=== PATIENT | male | born 1965 | race Caucasian/White ===

== ENCOUNTER 2017-02-24 19:12 | Inpatient (IN) | payer BC, OTHER ==
[~2017-02-24] VITALS: Ht 175.3 cm; Wt 111.7 kg
[2017-02-24 19:37] LABS: BASOPHILS 0.5 % (0-2); EOSINOPHILS 4.8 % (0-7); HEMATOCRIT 44.1 % (42.0-54.0); IMMATURE GRANULOCYTES 0.2 % (0-5); LYMPHOCYTES 28.3 % (15-50); MCH 30.4 pg (26.0-34.0); MCV 89.3 fL (80.0-100.0); MEAN PLATELET VOLUME 9.8 fL (7.4-10.4); NEUTROPHILS 58.2 % (40-80); PLATELET COUNT 316 10x3/uL (130-400); RBC 4.94 10x6/uL (4.20-6.10); RDW 13.2 % (11.5-14.5); WBC 8.7 10x3/uL (4.8-10.8)
[2017-02-24 19:42] LABS: INR 0.91 (0.85-1.17); PROTIME 11.9 SECONDS (11.6-15.0)
[2017-02-24 19:44] LABS: D-DIMER-QUANTITATIVE 0.27 ug/mLFEU (0.20-0.54)
[2017-02-24 19:52] LABS: ALBUMIN 4.2 g/dL (3.4-5.0); ALKALINE PHOSPHATASE 160 U/L (46-116); ALT (SGPT) 97 U/L (10-68); BILIRUBIN - TOTAL 0.34 mg/dL (0.2-1.3); CALC OSMOLALITY 282 mosm/kg (275-300); CALCIUM 9.3 mg/dL (8.5-10.1); CARBON DIOXIDE 26.8 mmol/L (21.0-32.0); CHLORIDE - SERUM 103 mmol/L (98-107); CREATININE - SERUM 1.4 mg/dL (0.6-1.3); GLUCOSE 129 mg/dL (74-106); POTASSIUM - SERUM 3.8 mmol/L (3.5-5.1); PROTEIN - SERUM 7.2 g/dL (6.4-8.2); SODIUM 140 mmol/L (136-145); UREA NITROGEN 17 mg/dL (7-18); eGFR NON AFRICAN AMERICAN 57 mL/min (90-120)
[2017-02-24 20:08] LABS: CKMB 1.6 U/L (0.0-3.6); CREATINE KINASE 202 UL (21-232); PRO BNP 13 pg/mL (0-125)
[2017-02-24 20:12] LABS: TROPONIN-I < 0.017 ng/mL (0.000-0.060)
[2017-02-24 23:00] VITALS: BP 146/97
[2017-02-24] MEDS ORDERED: ALVESCO6.1 GM INH (23:13)
[2017-02-24] MEDS ORDERED: PAMELOR 25 MG C25 MG PO (23:14)
[2017-02-24] MEDS ORDERED: ZYRTEC10 MG PO (23:15)
[2017-02-24] MEDS ORDERED: FLUTICASONE PRO16 GM NASAL (23:16)
[2017-02-24] MEDS ORDERED: IPRATROPIUM BR21 MCG NASAL (23:17)
[2017-02-24 23:19] VITALS: BP 123/95
[2017-02-24] MEDS ORDERED: DILT-XR240 MG PO (23:33)
[2017-02-24] MEDS ORDERED: SINGULAIR10 MG PO (23:33)
[2017-02-24] MEDS ORDERED: LISINOPRIL10 MG PO (23:34)
[2017-02-24] MEDS ORDERED: PROTONIX40 MG PO (23:37)
[2017-02-24] MEDS ORDERED: NEURONTIN600 MG PO (23:37)
[2017-02-24] MEDS ORDERED: MOBIC7.5 MG PO (23:38)
[2017-02-24] MEDS ORDERED: SYMBICORT 80-10.2 GM INH (23:39)
[2017-02-24] MEDS ORDERED: PROAIR HFA8.5 GM INH (23:42)
[2017-02-25] VITALS (14 sets, daily range): BP systolic 112–145; BP diastolic 60–99; Ht 175.3 cm; Wt 111.7 kg
[2017-02-25 04:19] LABS: BASOPHILS 0.1 % (0-2); EOSINOPHILS 0.1 % (0-7); HEMATOCRIT 43.2 % (42.0-54.0); HEMOGLOBIN 14.5 g/dL (13.5-17.5); IMMATURE GRANULOCYTES 0.1 % (0-5); LYMPHOCYTES 9.6 % (15-50); MCH 30.1 pg (26.0-34.0); MCHC 33.6 g/dL (31.0-37.0); MCV 89.6 fL (80.0-100.0); MEAN PLATELET VOLUME 10.4 fL (7.4-10.4); MONOCYTES 0.8 % (2-11); NEUTROPHILS 89.3 % (40-80); PLATELET COUNT 301 10x3/uL (130-400); RBC 4.82 10x6/uL (4.20-6.10); RDW 13.3 % (11.5-14.5); WBC 7.1 10x3/uL (4.8-10.8)
[2017-02-25 04:44] LABS: ALBUMIN 3.9 g/dL (3.4-5.0); ANION GAP 16.7 mmol/L (8-16); BILIRUBIN - TOTAL 0.41 mg/dL (0.2-1.3); CALCIUM 8.9 mg/dL (8.5-10.1); CARBON DIOXIDE 24.4 mmol/L (21.0-32.0); CREATININE - SERUM 1.4 mg/dL (0.6-1.3)
[2017-02-25 04:45] LABS: POTASSIUM - SERUM 5.1 mmol/L (3.5-5.1)
[2017-02-25 10:34] LABS: HEMOGLOBIN A1C 6.1 % (4.8-6.0)
[2017-02-26] VITALS: BP 124/55
[2017-02-26 04:00] VITALS: BP 124/50
[2017-02-26 05:31] LABS: BASOPHILS 0 % (0-2); EOSINOPHILS 0 % (0-7); HEMATOCRIT 40.8 % (42.0-54.0); HEMOGLOBIN 13.6 g/dL (13.5-17.5); IMMATURE GRANULOCYTES 0.4 % (0-5); LYMPHOCYTES 6.2 % (15-50); MCH 30.1 pg (26.0-34.0); MCHC 33.3 g/dL (31.0-37.0); MCV 90.3 fL (80.0-100.0); MEAN PLATELET VOLUME 10.5 fL (7.4-10.4); MONOCYTES 2.7 % (2-11); NEUTROPHILS 90.7 % (40-80); PLATELET COUNT 332 10x3/uL (130-400); RBC 4.52 10x6/uL (4.20-6.10); RDW 13.4 % (11.5-14.5)
[2017-02-26 05:32] LABS: WBC 15.1 10x3/uL (4.8-10.8)
[2017-02-26 06:05] LABS: ANION GAP 15.3 mmol/L (8-16); CALCIUM 8.8 mg/dL (8.5-10.1); CARBON DIOXIDE 26.2 mmol/L (21.0-32.0); CREATININE - SERUM 1.4 mg/dL (0.6-1.3); POTASSIUM - SERUM 4.5 mmol/L (3.5-5.1)
[2017-02-26 07:54] VITALS: BP 126/61
[2017-02-26 12:05] VITALS: BP 137/72
[2017-02-26 16:18] VITALS: BP 144/85
[2017-02-26 20:00] VITALS: BP 128/68
[2017-02-27] VITALS: BP 111/57
[2017-02-27 05:18] LABS: BASOPHILS 0 % (0-2); EOSINOPHILS 0.1 % (0-7); HEMATOCRIT 42.2 % (42.0-54.0); HEMOGLOBIN 13.8 g/dL (13.5-17.5); IMMATURE GRANULOCYTES 0.5 % (0-5); LYMPHOCYTES 5.6 % (15-50); MCH 29.7 pg (26.0-34.0); MCHC 32.7 g/dL (31.0-37.0); MCV 90.9 fL (80.0-100.0); MEAN PLATELET VOLUME 10.5 fL (7.4-10.4); MONOCYTES 2.9 % (2-11); NEUTROPHILS 90.9 % (40-80); PLATELET COUNT 346 10x3/uL (130-400); RBC 4.64 10x6/uL (4.20-6.10); RDW 13.6 % (11.5-14.5); WBC 17.1 10x3/uL (4.8-10.8)
[2017-02-27 05:36] LABS: ANION GAP 13.2 mmol/L (8-16); CALCIUM 9.2 mg/dL (8.5-10.1); CARBON DIOXIDE 28.3 mmol/L (21.0-32.0); CREATININE - SERUM 1.2 mg/dL (0.6-1.3); MAGNESIUM - SERUM 2.2 mg/dL (1.8-2.4); PHOSPHOROUS 3.5 mg/dL (2.5-4.9); POTASSIUM - SERUM 4.5 mmol/L (3.5-5.1)
[2017-02-27 08:16] VITALS: BP 141/64
[2017-02-27 12:22] VITALS: BP 126/58
[2017-02-27 16:13] VITALS: BP 106/56
[2017-02-27 20:00] VITALS: BP 146/93
[2017-02-27 23:53] VITALS: BP 157/75
[2017-02-28 04:00] VITALS: BP 116/74
[2017-02-28 06:22] LABS: HEMATOCRIT 37.3 % (42.0-54.0); HEMOGLOBIN 13.1 g/dL (13.5-17.5); LYMPHOCYTES 7.3 % (15-50); MCH 30.7 pg (26.0-34.0); MCHC 35.1 g/dL (31.0-37.0); MEAN PLATELET VOLUME 9.6 fL (7.4-10.4); NEUTROPHILS 88.5 % (40-80); PLATELET COUNT 297 10x3/uL (130-400); RBC 4.27 10x6/uL (4.20-6.10); RDW 13.1 % (11.5-14.5)
[2017-02-28 06:36] LABS: MCV 87.4 fL (80.0-100.0)
[2017-02-28 06:45] LABS: CALC OSMOLALITY 286 mosm/kg (275-300); CALCIUM 8.6 mg/dL (8.5-10.1); CARBON DIOXIDE 27.9 mmol/L (21.0-32.0); CHLORIDE - SERUM 104 mmol/L (98-107); GLUCOSE 203 mg/dL (74-106); POTASSIUM - SERUM 3.9 mmol/L (3.5-5.1); SODIUM 139 mmol/L (136-145); UREA NITROGEN 22 mg/dL (7-18); eGFR NON AFRICAN AMERICAN 84 mL/min (90-120)
[2017-02-28 08:18] VITALS: BP 126/63
[2017-02-28 12:18] VITALS: BP 140/62
[2017-02-28 14:12] LABS: BASOPHILS 0 % (0-2); EOSINOPHILS 0.1 % (0-7); HEMATOCRIT 39.6 % (42.0-54.0); HEMOGLOBIN 13.6 g/dL (13.5-17.5); IMMATURE GRANULOCYTES 2.7 % (0-5); MCH 30.2 pg (26.0-34.0); MCHC 34.3 g/dL (31.0-37.0); MCV 87.8 fL (80.0-100.0); MEAN PLATELET VOLUME 9.9 fL (7.4-10.4); MONOCYTES 3.6 % (2-11); NEUTROPHILS 87.6 % (40-80); PLATELET COUNT 308 10x3/uL (130-400); RBC 4.51 10x6/uL (4.20-6.10); WBC 14.6 10x3/uL (4.8-10.8)
[2017-02-28 14:27] LABS: ALBUMIN 3.1 g/dL (3.4-5.0); ALKALINE PHOSPHATASE 110 U/L (46-116); ALT (SGPT) 88 U/L (10-68); BILIRUBIN - TOTAL 0.44 mg/dL (0.2-1.3); CALC OSMOLALITY 285 mosm/kg (275-300); CALCIUM 8.4 mg/dL (8.5-10.1); CARBON DIOXIDE 28.2 mmol/L (21.0-32.0); CHLORIDE - SERUM 100 mmol/L (98-107); CREATININE - SERUM 1.2 mg/dL (0.6-1.3); GLUCOSE 279 mg/dL (74-106); POTASSIUM - SERUM 3.9 mmol/L (3.5-5.1); PROTEIN - SERUM 5.7 g/dL (6.4-8.2); SODIUM 136 mmol/L (136-145); UREA NITROGEN 23 mg/dL (7-18); eGFR NON AFRICAN AMERICAN 68 mL/min (90-120)
[2017-02-28 14:38] LABS: CKMB 1.8 U/L (0.0-3.6); PHOSPHOROUS 2.7 mg/dL (2.5-4.9); PRO BNP 224 pg/mL (0-125)
[2017-02-28 14:49] LABS: TROPONIN-I < 0.017 ng/mL (0.000-0.060)
[2017-02-28 15:29] VITALS: BP 123/53
[2017-02-28 21:31] VITALS: BP 131/67
[2017-03-01 01:38] VITALS: BP 130/75
[2017-03-01 05:04] LABS: BASOPHILS 0.1 % (0-2); EOSINOPHILS 0.1 % (0-7); HEMATOCRIT 38.7 % (42.0-54.0); HEMOGLOBIN 13.3 g/dL (13.5-17.5); IMMATURE GRANULOCYTES 2.9 % (0-5); LYMPHOCYTES 8.3 % (15-50); MCHC 34.4 g/dL (31.0-37.0); MCV 87.2 fL (80.0-100.0); MEAN PLATELET VOLUME 10.3 fL (7.4-10.4); MONOCYTES 3.8 % (2-11); NEUTROPHILS 84.8 % (40-80); PLATELET COUNT 290 10x3/uL (130-400); RBC 4.44 10x6/uL (4.20-6.10); RDW 12.9 % (11.5-14.5); WBC 12.8 10x3/uL (4.8-10.8)
[2017-03-01 05:11] LABS: CALC OSMOLALITY 286 mosm/kg (275-300); CALCIUM 8.2 mg/dL (8.5-10.1); CARBON DIOXIDE 28.5 mmol/L (21.0-32.0); CHLORIDE - SERUM 103 mmol/L (98-107); POTASSIUM - SERUM 3.8 mmol/L (3.5-5.1); SODIUM 139 mmol/L (136-145); UREA NITROGEN 24 mg/dL (7-18); eGFR NON AFRICAN AMERICAN 84 mL/min (90-120)
[2017-03-01 05:13] LABS: GLUCOSE 197 mg/dL (74-106)
[2017-03-01 08:05] VITALS: BP 157/94
[2017-03-01 12:10] VITALS: BP 144/84
[2017-03-01 16:17] VITALS: BP 148/84
[2017-03-01 22:34] VITALS: BP 148/86
[2017-03-02 04:48] VITALS: BP 125/61
[2017-03-02 05:49] LABS: BASOPHILS 0.1 % (0-2); EOSINOPHILS 0 % (0-7); HEMATOCRIT 41.9 % (42.0-54.0); HEMOGLOBIN 14.2 g/dL (13.5-17.5); IMMATURE GRANULOCYTES 3.6 % (0-5); LYMPHOCYTES 6.7 % (15-50); MCHC 33.9 g/dL (31.0-37.0); MCV 88.4 fL (80.0-100.0); MEAN PLATELET VOLUME 10.4 fL (7.4-10.4); MONOCYTES 6.2 % (2-11); NEUTROPHILS 83.4 % (40-80); PLATELET COUNT 307 10x3/uL (130-400); RBC 4.74 10x6/uL (4.20-6.10); RDW 12.6 % (11.5-14.5)
[2017-03-02 06:13] LABS: ALBUMIN 3.1 g/dL (3.4-5.0); ANION GAP 9.4 mmol/L (8-16); BILIRUBIN - TOTAL 0.4 mg/dL (0.2-1.3); CALCIUM 8.7 mg/dL (8.5-10.1); CARBON DIOXIDE 33.4 mmol/L (21.0-32.0); CREATININE - SERUM 1.2 mg/dL (0.6-1.3); POTASSIUM - SERUM 3.8 mmol/L (3.5-5.1); PROTEIN - SERUM 5.7 g/dL (6.4-8.2)
[2017-03-02 08:43] VITALS: BP 134/86
[2017-03-02 12:45] VITALS: BP 147/74
[2017-03-02 21:30] VITALS: BP 119/64
[2017-03-03 01:13] VITALS: BP 137/74
[2017-03-03 04:35] LABS: BASOPHILS 0.1 % (0-2); EOSINOPHILS 0.1 % (0-7); HEMOGLOBIN 13.4 g/dL (13.5-17.5); IMMATURE GRANULOCYTES 5.3 % (0-5); LYMPHOCYTES 6.3 % (15-50); MCHC 34.4 g/dL (31.0-37.0); MCV 87.4 fL (80.0-100.0); MEAN PLATELET VOLUME 9.8 fL (7.4-10.4); MONOCYTES 5.3 % (2-11); NEUTROPHILS 82.9 % (40-80); PLATELET COUNT 255 10x3/uL (130-400); RBC 4.46 10x6/uL (4.20-6.10); RDW 12.6 % (11.5-14.5); WBC 14.3 10x3/uL (4.8-10.8)
[2017-03-03 04:46] LABS: ANION GAP 8.5 mmol/L (8-16); CALCIUM 8.3 mg/dL (8.5-10.1); CARBON DIOXIDE 33.7 mmol/L (21.0-32.0); CREATININE - SERUM 1.2 mg/dL (0.6-1.3); POTASSIUM - SERUM 4.2 mmol/L (3.5-5.1)
[2017-03-03 04:47] LABS: HEMOGLOBIN A1C 6.3 % (4.8-6.0)
[2017-03-03 05:25] VITALS: BP 147/73
[2017-03-03 07:58] VITALS: BP 133/64
[2017-03-03 12:26] VITALS: BP 147/89
[2017-03-03 15:56] VITALS: BP 126/63
[2017-03-03 21:08] LABS: IMMUNOGLOBULIN E 248 IU/mL (0-100)
[2017-03-04 04:21] LABS: BASOPHILS 0.1 % (0-2); EOSINOPHILS 0.1 % (0-7); HEMATOCRIT 39.5 % (42.0-54.0); HEMOGLOBIN 13.6 g/dL (13.5-17.5); IMMATURE GRANULOCYTES 5.8 % (0-5); LYMPHOCYTES 11.4 % (15-50); MCH 30.2 pg (26.0-34.0); MCHC 34.4 g/dL (31.0-37.0); MCV 87.6 fL (80.0-100.0); MEAN PLATELET VOLUME 9.7 fL (7.4-10.4); MONOCYTES 6.4 % (2-11); NEUTROPHILS 76.2 % (40-80); PLATELET COUNT 233 10x3/uL (130-400); RBC 4.51 10x6/uL (4.20-6.10); RDW 12.7 % (11.5-14.5); WBC 13.9 10x3/uL (4.8-10.8)
[2017-03-04 04:51] VITALS: BP 120/63
[2017-03-04 04:51] LABS: ALBUMIN 2.7 g/dL (3.4-5.0); ALKALINE PHOSPHATASE 91 U/L (46-116); ALT (SGPT) 65 U/L (10-68); BILIRUBIN - TOTAL 0.44 mg/dL (0.2-1.3); CALC OSMOLALITY 284 mosm/kg (275-300); CALCIUM 7.7 mg/dL (8.5-10.1); CHLORIDE - SERUM 104 mmol/L (98-107); POTASSIUM - SERUM 3.9 mmol/L (3.5-5.1); SODIUM 141 mmol/L (136-145); UREA NITROGEN 24 mg/dL (7-18); eGFR NON AFRICAN AMERICAN 84 mL/min (90-120)
[2017-03-04 04:55] LABS: GLUCOSE 102 mg/dL (74-106)
[2017-03-04 06:31] VITALS: BP 122/70
[2017-03-04 08:35] VITALS: BP 133/66
[2017-03-04 12:46] VITALS: BP 114/69
[2017-03-04 16:06] VITALS: BP 135/71
[2017-03-04 22:44] VITALS: BP 132/78
[2017-03-05 01:30] VITALS: BP 105/66
[2017-03-05 04:47] LABS: BASOPHILS 0 % (0-2); EOSINOPHILS 0.7 % (0-7); HEMATOCRIT 40.4 % (42.0-54.0); HEMOGLOBIN 13.6 g/dL (13.5-17.5); IMMATURE GRANULOCYTES 4.7 % (0-5); MCH 29.7 pg (26.0-34.0); MCHC 33.7 g/dL (31.0-37.0); MCV 88.2 fL (80.0-100.0); MONOCYTES 5.9 % (2-11); NEUTROPHILS 66.7 % (40-80); PLATELET COUNT 197 10x3/uL (130-400); RBC 4.58 10x6/uL (4.20-6.10)
[2017-03-05 04:53] LABS: WBC 8.7 10x3/uL (4.8-10.8)
[2017-03-05 05:09] LABS: ALBUMIN 2.7 g/dL (3.4-5.0); ALKALINE PHOSPHATASE 96 U/L (46-116); ALT (SGPT) 73 U/L (10-68); CALC OSMOLALITY 281 mosm/kg (275-300); CALCIUM 7.6 mg/dL (8.5-10.1); CARBON DIOXIDE 30.8 mmol/L (21.0-32.0); CHLORIDE - SERUM 104 mmol/L (98-107); CREATININE - SERUM 1.1 mg/dL (0.6-1.3); GLUCOSE 114 mg/dL (74-106); POTASSIUM - SERUM 3.9 mmol/L (3.5-5.1); SODIUM 140 mmol/L (136-145); UREA NITROGEN 18 mg/dL (7-18); eGFR NON AFRICAN AMERICAN 75 mL/min (90-120)
[2017-03-05 05:21] VITALS: BP 106/66
[2017-03-05 08:07] VITALS: BP 135/84
[2017-03-05] MEDS ORDERED: FEXOFENADINE H180 MG PO (11:19)
[2017-03-05] MEDS ORDERED: DIFLUCAN100 MG PO (11:19)
[2017-03-05] MEDS ORDERED: NYSTATIN ORAL SU5 ML PO (11:19)
[2017-03-05] MEDS ORDERED: COLACE100 MG PO (11:20)
[2017-03-05] MEDS ORDERED: MUCINEX DM ER1 EAC1 PO (11:20)
[2017-03-05] MEDS ORDERED: FLORAJEN3 CAPS460 MG PO (11:20)
== END 2017-03-05 12:10 | disposition home or self-care (01) | DRG 202 ==
LOC: D.ER 19:12 → D.ICU 21:31 → D.MS 21:31
PROVIDERS: Family Medicine; Internal Medicine Gastroenterology; Internal Medicine Nephrology; Internal Medicine Pulmonary Disease
PROC: 0DB78ZX Excision of Stomach, Pylorus, Via Natural or Artificial Opening Endoscopic, Diagnostic (ICD-10-PCS; 2017-03-03)
PROC: 0DB38ZX Excision of Lower Esophagus, Via Natural or Artificial Opening Endoscopic, Diagnostic (ICD-10-PCS; principal; 2017-03-03 14:30)
DX: J45.902 Unspecified asthma with status asthmaticus (principal); B37.81 Candidal esophagitis; J20.9 Acute bronchitis, unspecified; K21.9 Gastro-esophageal reflux disease without esophagitis; E11.22 Type 2 diabetes mellitus with diabetic chronic kidney disease; I12.9 Hypertensive chronic kidney disease with stage 1 through stage 4 chronic kidney disease, or unspecified chronic kidney disease; N18.2 Chronic kidney disease, stage 2 (mild); F41.9 Anxiety disorder, unspecified; M54.81 Occipital neuralgia; B35.3 Tinea pedis; E09.9 Drug or chemical induced diabetes mellitus without complications; L27.0 Generalized skin eruption due to drugs and medicaments taken internally; T36.3X5A Adverse effect of macrolides, initial encounter; K76.0 Fatty (change of) liver, not elsewhere classified; B95.61 Methicillin susceptible Staphylococcus aureus infection as the cause of diseases classified elsewhere; R00.0 Tachycardia, unspecified; K29.60 Other gastritis without bleeding; K44.9 Diaphragmatic hernia without obstruction or gangrene

== ENCOUNTER 2017-04-15 09:36 | Outpatient (CLI) | payer BC ==
[~2017-04-15 09:36] MED LIST: ALVESCO6.1 GM INH; COLACE100 MG PO; DIFLUCAN100 MG PO; DILT-XR240 MG PO; FEXOFENADINE H180 MG PO; FLORAJEN3 CAPS460 MG PO; FLUTICASONE PRO16 GM NASAL; IPRATROPIUM BR21 MCG NASAL; LISINOPRIL10 MG PO; MOBIC7.5 MG PO; MUCINEX DM ER1 EAC1 PO; NEURONTIN600 MG PO; NYSTATIN ORAL SU5 ML PO; PAMELOR 25 MG C25 MG PO; PROAIR HFA8.5 GM INH; PROTONIX40 MG PO; SINGULAIR10 MG PO; SYMBICORT 80-10.2 GM INH; ZYRTEC10 MG PO
[2017-07-14] MEDS ORDERED: LIBRAX CAPSULE1 CAP (21:33)
== END 2017-04-15 11:00 ==
LOC: D.OPS 09:36
DX: R10.13 Epigastric pain (principal); K21.9 Gastro-esophageal reflux disease without esophagitis

== ENCOUNTER → 2017-05-28 10:37 | Outpatient (CLI) | payer BC ==
[~2017-05-28 10:37] MED LIST changes: +ED-SPAZ0.125 MG PO; +FAMOTIDINE10 MG PO; +FLAGYL500 MG PO; +HYDROCODON-ACE1 EAC7 PO; +LEVAQUIN500 MG PO; +LIBRAX CAPSULE1 CAP; +PEPCID20 MG PO; +QUESTRAN PACK4 G/PKT PO; +ZOFRAN ODT4 MG/UDTAB PO
== END | disposition home or self-care (01) ==
LOC: D.RAD 10:37
DX: K21.0 Gastro-esophageal reflux disease with esophagitis (principal)

== ENCOUNTER 2017-06-09 06:05 | Inpatient (IN) | payer BC ==
[~2017-06-09] VITALS: Ht 175.3 cm; Wt 103.6 kg
--- NOTE | ~2017-06-09 | DS ---
PATIENT:KAN SERVIN :67 MEDICAL RECORD: [id number] DISCHARGE SUMMARY ADMISSION DATE: 06/09/17 DISCHARGE DATE: 06/10/17 DATE OF ADMISSION: 06/09/2017 DATE OF DISCHARGE: 06/10/2017 ADMITTING PHYSICIAN: Matt Espinoza MD DISCHARGE PHYSICIAN: Matt Espinoza MD ADMITTING DIAGNOSES: 1. Gastroesophageal reflux disease. 2. Essential hypertension. 3. Asthma. 4. Diaphragmatic hernia. DISCHARGE DIAGNOSES: 1. Gastroesophageal reflux disease. 2. Essential hypertension. 3. Asthma. 4. Diaphragmatic hernia. 5. Laparoscopic hiatal hernia repair with LINX procedure. HOSPITAL COURSE: The patient was admitted to the hospital for an elective laparoscopic hiatal hernia repair with LINX procedure. The patient tolerated the procedure well and postoperatively was transferred to the floor in stable condition. His postoperative course was without complication. He was started on a clear liquid diet. On postoperative day #1, he had a Gastrografin swallow, which was within normal limits. Thereafter, he was started on a full liquid diet. At the time of discharge, the patient was tolerating a full liquid diet. He was ambulating independently. His pain was well controlled on oral pain medicines. DISCHARGE MEDICATIONS: Please see electronic medical record. DISCHARGE CONDITION: Stable. DISCHARGE DIET: Full liquid diet for 2 weeks. FOLLOWUP: Dr. Espinoza in 2 weeks. DISCHARGE ACTIVITY: As tolerated, no restrictions. WOUND CARE: The patient may shower, soap and water to the wound daily. No bath for 2 weeks. TRANSINT:[id number] Voice Confirmation ID: [id number] DOCUMENT ID: [id number] DISCHARGE SUMMARY REPORT [id number] KAN SERVIN OLGA,MATT Whittaker MD at 1509 CC: [id number] DICTATION DATE: 06/23/17 1501 [place]AG [place]: 06/24/17 1220 DIS IN 06/10/17 [place] [address]
[~2017-06-09 06:05] MED LIST changes: -ED-SPAZ0.125 MG PO; -FAMOTIDINE10 MG PO; -FLAGYL500 MG PO; -HYDROCODON-ACE1 EAC7 PO; -LEVAQUIN500 MG PO; -LIBRAX CAPSULE1 CAP; -PEPCID20 MG PO; -QUESTRAN PACK4 G/PKT PO; -ZOFRAN ODT4 MG/UDTAB PO
[2017-06-09] MEDS ORDERED: FAMOTIDINE10 MG PO (07:32)
[2017-06-09 07:48] VITALS: BP 146/85; BMI 33.7
[2017-06-09 08:35] LABS: HEMATOCRIT 42.4 % (42.0-54.0); HEMOGLOBIN 14.5 g/dL (13.5-17.5); MCH 30.3 pg (26.0-34.0); MCHC 34.2 g/dL (31.0-37.0); MCV 88.5 fL (80.0-100.0); MEAN PLATELET VOLUME 9.9 fL (7.4-10.4); RBC 4.79 10x6/uL (4.20-6.10); RDW 13.4 % (11.5-14.5); WBC 5.8 10x3/uL (4.8-10.8)
[2017-06-09 14:43] VITALS: BP 128/78
[2017-06-09 16:50] VITALS: BP 128/78; Ht 175.3 cm; Wt 103.6 kg
[2017-06-09 20:54] VITALS: BP 139/93
[2017-06-10 04:46] LABS: BASOPHILS 0 % (0-2); EOSINOPHILS 0 % (0-7); HEMATOCRIT 39.8 % (42.0-54.0); HEMOGLOBIN 13.6 g/dL (13.5-17.5); IMMATURE GRANULOCYTES 0.1 % (0-5); LYMPHOCYTES 8.1 % (15-50); MCH 30.1 pg (26.0-34.0); MCHC 34.2 g/dL (31.0-37.0); MCV 88.1 fL (80.0-100.0); MEAN PLATELET VOLUME 9.8 fL (7.4-10.4); NEUTROPHILS 86.8 % (40-80); PLATELET COUNT 267 10x3/uL (130-400); RBC 4.52 10x6/uL (4.20-6.10); RDW 13.3 % (11.5-14.5)
[2017-06-10 04:57] VITALS: BP 148/89
[2017-06-10 05:06] LABS: WBC 10.7 10x3/uL (4.8-10.8)
[2017-06-10 05:19] LABS: ANION GAP 15.4 mmol/L (8-16); BILIRUBIN - TOTAL 0.44 mg/dL (0.2-1.3); CALCIUM 8.8 mg/dL (8.5-10.1); CARBON DIOXIDE 24.1 mmol/L (21.0-32.0); CREATININE - SERUM 1.3 mg/dL (0.6-1.3); POTASSIUM - SERUM 4.5 mmol/L (3.5-5.1)
[2017-06-10] MEDS ORDERED: ZOFRAN ODT4 MG/UDTAB PO (08:08)
[2017-06-10] MEDS ORDERED: HYDROCODON-ACE1 EAC7 PO (08:08)
[2017-06-10 08:48] VITALS: BP 125/68
[2017-07-14] MEDS ORDERED: LIBRAX CAPSULE1 CAP (21:33)
== END 2017-06-10 09:49 | disposition home or self-care (01) | DRG 328 ==
LOC: D.OPS 06:05 → D.MS 06:05 → D.OPS 08:00 → D.PAN 08:40 → D.OPS 08:45 → D.MS 14:14 → D.OPS 14:15 → D.MS 14:15
PROVIDERS: Anesthesiology; Surgery
PROC: 0BQT4ZZ Repair Diaphragm, Percutaneous Endoscopic Approach (ICD-10-PCS; 2017-06-09)
PROC: 0DV44CZ Restriction of Esophagogastric Junction with Extraluminal Device, Percutaneous Endoscopic Approach (ICD-10-PCS; principal; 2017-06-09 08:45)
DX: K21.9 Gastro-esophageal reflux disease without esophagitis (principal); I10 Essential (primary) hypertension; J45.909 Unspecified asthma, uncomplicated; K44.9 Diaphragmatic hernia without obstruction or gangrene

== ENCOUNTER 2017-06-27 19:10 | Inpatient (IN) | payer BC ==
[~2017-06-27] VITALS: Ht 175.3 cm; Wt 103.4 kg
[~2017-06-27 19:10] MED LIST changes: +FAMOTIDINE10 MG PO; +HYDROCODON-ACE1 EAC7 PO; +ZOFRAN ODT4 MG/UDTAB PO
[2017-06-27 19:44] LABS: BASOPHILS 0.1 % (0-2); EOSINOPHILS 0.8 % (0-7); HEMATOCRIT 50.3 % (42.0-54.0); HEMOGLOBIN 17.4 g/dL (13.5-17.5); IMMATURE GRANULOCYTES 0.2 % (0-5); LYMPHOCYTES 8.8 % (15-50); MCH 31.1 pg (26.0-34.0); MCHC 34.6 g/dL (31.0-37.0); MCV 89.8 fL (80.0-100.0); MEAN PLATELET VOLUME 10.1 fL (7.4-10.4); MONOCYTES 3.4 % (2-11); NEUTROPHILS 86.7 % (40-80); PLATELET COUNT 315 10x3/uL (130-400); WBC 10.3 10x3/uL (4.8-10.8)
[2017-06-27 19:58] LABS: ANION GAP 17.1 mmol/L (8-16); BILIRUBIN - TOTAL 0.68 mg/dL (0.2-1.3); CALCIUM 8.9 mg/dL (8.5-10.1); CARBON DIOXIDE 21.8 mmol/L (21.0-32.0); CREATININE - SERUM 1.6 mg/dL (0.6-1.3); POTASSIUM - SERUM 4.9 mmol/L (3.5-5.1); PROTEIN - SERUM 7.6 g/dL (6.4-8.2)
[2017-06-28] MEDS ORDERED: PEPCID20 MG PO (05:36)
[2017-06-28 05:37] VITALS: BP 113/69; BMI 33.7
[2017-06-28 08:23] VITALS: BP 116/63
[2017-06-28 10:46] VITALS: BMI 33.6
[2017-06-28 12:09] VITALS: BP 118/70
[2017-06-28 15:00] VITALS: Ht 175.3 cm; Wt 103.4 kg
[2017-06-28 16:49] VITALS: BP 127/82
[2017-06-28 20:20] VITALS: BP 124/78
[2017-06-29 01:02] VITALS: BP 128/82
[2017-06-29 04:22] VITALS: BP 134/84
[2017-06-29 07:00] VITALS: BP 119/68
[2017-06-29 07:17] LABS: BASOPHILS 0.3 % (0-2); EOSINOPHILS 5.1 % (0-7); HEMATOCRIT 36.6 % (42.0-54.0); HEMOGLOBIN 12.5 g/dL (13.5-17.5); IMMATURE GRANULOCYTES 0.3 % (0-5); LYMPHOCYTES 25.9 % (15-50); MCHC 34.2 g/dL (31.0-37.0); MEAN PLATELET VOLUME 9.7 fL (7.4-10.4); MONOCYTES 10.7 % (2-11); NEUTROPHILS 57.7 % (40-80); PLATELET COUNT 213 10x3/uL (130-400); RBC 4.16 10x6/uL (4.20-6.10); RDW 14.1 % (11.5-14.5); WBC 3.4 10x3/uL (4.8-10.8)
[2017-06-29 07:41] LABS: CALCIUM 8.4 mg/dL (8.5-10.1); CHLORIDE - SERUM 106 mmol/L (98-107); SODIUM 140 mmol/L (136-145)
[2017-06-29 07:56] LABS: CALC OSMOLALITY 276 mosm/kg (275-300); CARBON DIOXIDE 27.5 mmol/L (21.0-32.0); CREATININE - SERUM 0.9 mg/dL (0.6-1.3); GLUCOSE 107 mg/dL (74-106); POTASSIUM - SERUM 3.9 mmol/L (3.5-5.1); UREA NITROGEN 6 mg/dL (7-18); eGFR NON AFRICAN AMERICAN > 90 mL/min (90-120)
[2017-06-29 12:25] VITALS: BP 113/76
[2017-06-29 17:41] VITALS: BP 121/72
[2017-06-29 20:53] VITALS: BP 118/72
[2017-06-30 01:13] VITALS: BP 124/74
[2017-06-30 03:06] LABS: APPEARANCE CLEAR (CLEAR); BILIRUBIN NEGATIVE (NEGATIVE); COLOR YELLOW (YELLOW); GLUCOSE NEGATIVE (NEGATIVE); KETONE NEGATIVE (NEGATIVE); NITRITE NEGATIVE (NEGATIVE); PROTEIN NEGATIVE (NEGATIVE); UROBILINOGEN NORMAL (NORMAL)
[2017-06-30 03:07] LABS: BACTERIA NONE SEEN /hpf (NONE SEEN); EPITHELIAL CELLS 0-5 /hpf (0-5); RED CELLS - URINE NONE SEEN /hpf (0-5); WHITE CELLS - URINE 0-5 /hpf (0-5)
[2017-06-30 04:45] VITALS: BP 134/74
[2017-06-30 05:44] LABS: BASOPHILS 0.3 % (0-2); EOSINOPHILS 4.5 % (0-7); HEMATOCRIT 35.9 % (42.0-54.0); HEMOGLOBIN 12.1 g/dL (13.5-17.5); MCH 29.8 pg (26.0-34.0); MCHC 33.7 g/dL (31.0-37.0); MCV 88.4 fL (80.0-100.0); MEAN PLATELET VOLUME 9.6 fL (7.4-10.4); MONOCYTES 6.5 % (2-11); NEUTROPHILS 59.7 % (40-80); PLATELET COUNT 237 10x3/uL (130-400); RBC 4.06 10x6/uL (4.20-6.10); WBC 3.5 10x3/uL (4.8-10.8)
[2017-06-30 06:33] LABS: CALC OSMOLALITY 284 mosm/kg (275-300); CALCIUM 8.5 mg/dL (8.5-10.1); CARBON DIOXIDE 27.3 mmol/L (21.0-32.0); CHLORIDE - SERUM 110 mmol/L (98-107); CREATININE - SERUM 0.9 mg/dL (0.6-1.3); GLUCOSE 121 mg/dL (74-106); SODIUM 144 mmol/L (136-145); eGFR NON AFRICAN AMERICAN > 90 mL/min (90-120)
[2017-06-30 06:40] LABS: UREA NITROGEN 4 mg/dL (7-18)
[2017-06-30 07:43] VITALS: BP 116/70
[2017-06-30 12:28] VITALS: BP 115/68
[2017-06-30 15:49] VITALS: BP 110/64
[2017-06-30 19:25] LABS: APPEARANCE CLEAR (CLEAR); COLOR YELLOW (YELLOW)
[2017-06-30 19:26] LABS: BILIRUBIN NEGATIVE (NEGATIVE); GLUCOSE NEGATIVE (NEGATIVE); KETONE NEGATIVE (NEGATIVE); NITRITE NEGATIVE (NEGATIVE); PROTEIN NEGATIVE (NEGATIVE); UROBILINOGEN NORMAL (NORMAL)
[2017-06-30 20:53] VITALS: BP 108/52
[2017-07-01 02:16] VITALS: BP 124/54
[2017-07-01 04:56] VITALS: BP 134/64
[2017-07-01 05:27] LABS: BASOPHILS 0.2 % (0-2); HEMATOCRIT 35.1 % (42.0-54.0); HEMOGLOBIN 11.9 g/dL (13.5-17.5); LYMPHOCYTES 27.7 % (15-50); MCH 29.8 pg (26.0-34.0); MCHC 33.9 g/dL (31.0-37.0); MCV 87.8 fL (80.0-100.0); MEAN PLATELET VOLUME 9.7 fL (7.4-10.4); MONOCYTES 6.6 % (2-11); NEUTROPHILS 60.5 % (40-80); PLATELET COUNT 256 10x3/uL (130-400); RDW 13.9 % (11.5-14.5); WBC 4.2 10x3/uL (4.8-10.8)
[2017-07-01 05:59] LABS: ALBUMIN 2.6 g/dL (3.4-5.0); ALKALINE PHOSPHATASE 84 U/L (46-116); ALT (SGPT) 50 U/L (10-68); CALC OSMOLALITY 287 mosm/kg (275-300); CALCIUM 8.4 mg/dL (8.5-10.1); CARBON DIOXIDE 27.8 mmol/L (21.0-32.0); CHLORIDE - SERUM 110 mmol/L (98-107); CREATININE - SERUM 0.9 mg/dL (0.6-1.3); GLUCOSE 135 mg/dL (74-106); POTASSIUM - SERUM 3.5 mmol/L (3.5-5.1); PROTEIN - SERUM 5.2 g/dL (6.4-8.2); SODIUM 145 mmol/L (136-145); UREA NITROGEN 3 mg/dL (7-18); eGFR NON AFRICAN AMERICAN > 90 mL/min (90-120)
[2017-07-01 07:51] VITALS: BP 129/75
[2017-07-01 12:10] VITALS: BP 104/53
[2017-07-01] MEDS ORDERED: PROTONIX40 MG PO (15:01)
[2017-07-01] MEDS ORDERED: LEVAQUIN500 MG PO (15:01)
[2017-07-01] MEDS ORDERED: FLAGYL500 MG PO (15:01)
[2017-07-01] MEDS ORDERED: QUESTRAN PACK4 G/PKT PO (15:01)
[2017-07-01 15:39] VITALS: BP 107/65
== END 2017-07-01 18:50 | disposition home or self-care (01) | DRG 872 ==
LOC: D.ER 19:10 → OBSVTIME 06-28 00:23 → D.EDHOLD 06-28 00:23 → D.MS 06-28 00:37
PROVIDERS: Emergency Medicine; Internal Medicine Gastroenterology; Internal Medicine Nephrology
DX: A41.9 Sepsis, unspecified organism (principal); N17.9 Acute kidney failure, unspecified; A09 Infectious gastroenteritis and colitis, unspecified; Z68.33 Body mass index [BMI] 33.0-33.9, adult; E11.22 Type 2 diabetes mellitus with diabetic chronic kidney disease; I12.9 Hypertensive chronic kidney disease with stage 1 through stage 4 chronic kidney disease, or unspecified chronic kidney disease; N18.2 Chronic kidney disease, stage 2 (mild); K21.9 Gastro-esophageal reflux disease without esophagitis; R00.0 Tachycardia, unspecified; B35.3 Tinea pedis; E66.01 Morbid (severe) obesity due to excess calories

== ENCOUNTER → 2017-07-09 17:21 | Outpatient (CLI) | payer BC ==
[2017-06-28 15:00] VITALS: BMI 33.6
[~2017-07-09 17:21] MED LIST changes: +CREON (PANCRELI1 CAP PO; +ED-SPAZ0.125 MG PO; +FLAGYL500 MG PO; +LEVAQUIN500 MG PO; +LIBRAX CAPSULE1 CAP PO; +LOMOTIL TABLET1 TAB PO; +NORTRIPTYLINE H50 MG PO; +PEPCID20 MG PO; +QUESTRAN LIG1 PACKET PO; +QUESTRAN PACK4 G/PKT PO; +ROBITUSSIN DM 110 ML PO; +TESSALON PERLE100 MG PO
[2017-07-21 16:15] LABS: OVA + PARASITE EXAM Final report (())
== END | disposition home or self-care (01) ==
LOC: D.LAB 13:45
PROVIDERS: Internal Medicine Gastroenterology
DX: Z87.19 Personal history of other diseases of the digestive system (principal); R10.9 Unspecified abdominal pain; R19.7 Diarrhea, unspecified

== ENCOUNTER 2017-07-14 21:14 | Emergency (ER) | payer BC ==
[~2017-07-14] VITALS: Ht 175.3 cm; Wt 103.2 kg
[~2017-07-14 21:14] MED LIST changes: -CREON (PANCRELI1 CAP PO; -ED-SPAZ0.125 MG PO; -LIBRAX CAPSULE1 CAP PO; -LOMOTIL TABLET1 TAB PO; -NORTRIPTYLINE H50 MG PO; -QUESTRAN LIG1 PACKET PO; -ROBITUSSIN DM 110 ML PO; -TESSALON PERLE100 MG PO
[2017-07-14 21:29] VITALS: Ht 175.3 cm; Wt 103.2 kg
[2017-07-14] MEDS ORDERED: LIBRAX CAPSULE1 CAP PO (21:33)
[2017-07-14] MEDS ORDERED: ED-SPAZ0.125 MG PO (21:33)
[2017-07-14 22:58] LABS: BASOPHILS 0.7 % (0-2); EOSINOPHILS 2.2 % (0-7); HEMATOCRIT 42.2 % (42.0-54.0); HEMOGLOBIN 14.4 g/dL (13.5-17.5); IMMATURE GRANULOCYTES 0.2 % (0-5); LYMPHOCYTES 17.9 % (15-50); MCH 30.6 pg (26.0-34.0); MCHC 34.1 g/dL (31.0-37.0); MCV 89.8 fL (80.0-100.0); MEAN PLATELET VOLUME 9.8 fL (7.4-10.4); MONOCYTES 11.4 % (2-11); NEUTROPHILS 67.6 % (40-80); PLATELET COUNT 327 10x3/uL (130-400); RDW 14.5 % (11.5-14.5); WBC 8.1 10x3/uL (4.8-10.8)
[2017-07-14 22:59] LABS: APPEARANCE CLEAR (CLEAR); BILIRUBIN NEGATIVE (NEGATIVE); COLOR YELLOW (YELLOW); GLUCOSE NEGATIVE (NEGATIVE); KETONE NEGATIVE (NEGATIVE); NITRITE NEGATIVE (NEGATIVE); PROTEIN NEGATIVE (NEGATIVE); UROBILINOGEN NORMAL (NORMAL)
[2017-07-14 23:09] LABS: ALBUMIN 3.5 g/dL (3.4-5.0); ANION GAP 11.1 mmol/L (8-16); BILIRUBIN - TOTAL 0.27 mg/dL (0.2-1.3); CREATININE - SERUM 1.2 mg/dL (0.6-1.3); POTASSIUM - SERUM 4.1 mmol/L (3.5-5.1); PROTEIN - SERUM 6.5 g/dL (6.4-8.2)
[2017-07-15] MEDS ORDERED: HYDROCODON-ACE1 EAC7 PO (01:22)
[2017-07-15 01:57] VITALS: BP 119/85
== END 2017-07-15 01:58 | disposition home or self-care (01) ==
LOC: D.ER 21:14
PROVIDERS: Emergency Medicine
DX: R10.9 Unspecified abdominal pain (principal); R19.7 Diarrhea, unspecified; R11.2 Nausea with vomiting, unspecified; K21.9 Gastro-esophageal reflux disease without esophagitis; I10 Essential (primary) hypertension

== ENCOUNTER 2017-07-26 17:24 | Inpatient (IN) | payer BC ==
[~2017-07-26] VITALS: Ht 175.3 cm; Wt 102.1 kg
[~2017-07-26 17:24] MED LIST changes: +ED-SPAZ0.125 MG PO; +LIBRAX CAPSULE1 CAP PO
[2017-07-26] MEDS ORDERED: NORTRIPTYLINE H50 MG PO ×2 (17:47→17:48)
[2017-07-26 18:21] LABS: BASOPHILS 0.6 % (0-2); EOSINOPHILS 3.8 % (0-7); HEMATOCRIT 43.2 % (42.0-54.0); HEMOGLOBIN 15.1 g/dL (13.5-17.5); IMMATURE GRANULOCYTES 0.3 % (0-5); LYMPHOCYTES 22.3 % (15-50); MCH 30.8 pg (26.0-34.0); MCV 88.2 fL (80.0-100.0); MEAN PLATELET VOLUME 10.1 fL (7.4-10.4); PLATELET COUNT 346 10x3/uL (130-400); RDW 14.3 % (11.5-14.5); WBC 7.9 10x3/uL (4.8-10.8)
[2017-07-26 18:37] LABS: ALBUMIN 3.7 g/dL (3.4-5.0); ALKALINE PHOSPHATASE 97 U/L (46-116); ALT (SGPT) 39 U/L (10-68); CALC OSMOLALITY 280 mosm/kg (275-300); CALCIUM 8.9 mg/dL (8.5-10.1); CARBON DIOXIDE 24.3 mmol/L (21.0-32.0); CHLORIDE - SERUM 104 mmol/L (98-107); GLUCOSE 112 mg/dL (74-106); POTASSIUM - SERUM 3.9 mmol/L (3.5-5.1); PROTEIN - SERUM 6.9 g/dL (6.4-8.2); SODIUM 141 mmol/L (136-145); UREA NITROGEN 9 mg/dL (7-18); eGFR NON AFRICAN AMERICAN 84 mL/min (90-120)
[2017-07-26 18:54] LABS: CKMB 0.5 U/L (0.0-3.6); CREATINE KINASE 64 UL (21-232)
[2017-07-26 19:01] LABS: TROPONIN-I < 0.017 ng/mL (0.000-0.060)
[2017-07-26 19:09] VITALS: BP 142/98
[2017-07-26 22:30] VITALS: BP 141/98; BMI 33.3
[2017-07-27 00:08] VITALS: BP 143/107
[2017-07-27 04:00] VITALS: BP 121/73
[2017-07-27 07:08] LABS: BASOPHILS 0 % (0-2); EOSINOPHILS 0 % (0-7); HEMOGLOBIN 15.1 g/dL (13.5-17.5); IMMATURE GRANULOCYTES 0.2 % (0-5); LYMPHOCYTES 11.8 % (15-50); MCH 30.6 pg (26.0-34.0); MCHC 35.1 g/dL (31.0-37.0); MCV 87.2 fL (80.0-100.0); MEAN PLATELET VOLUME 10.2 fL (7.4-10.4); MONOCYTES 0.8 % (2-11); NEUTROPHILS 87.2 % (40-80); PLATELET COUNT 341 10x3/uL (130-400); RBC 4.93 10x6/uL (4.20-6.10); RDW 14.1 % (11.5-14.5)
[2017-07-27 07:10] LABS: WBC 5.9 10x3/uL (4.8-10.8)
[2017-07-27 07:44] LABS: CALC OSMOLALITY 277 mosm/kg (275-300); CALCIUM 9.3 mg/dL (8.5-10.1); CARBON DIOXIDE 25.7 mmol/L (21.0-32.0); CHLORIDE - SERUM 103 mmol/L (98-107); CREATININE - SERUM 1.1 mg/dL (0.6-1.3); POTASSIUM - SERUM 4.2 mmol/L (3.5-5.1); SODIUM 136 mmol/L (136-145); THYROID STIMULATING HORMONE 1.68 uIU/mL (0.36-3.74); UREA NITROGEN 9 mg/dL (7-18); eGFR NON AFRICAN AMERICAN 75 mL/min (90-120)
[2017-07-27 07:48] LABS: GLUCOSE 216 mg/dL (74-106)
[2017-07-27 08:29] VITALS: BP 107/75
[2017-07-27 12:30] VITALS: BP 138/87
[2017-07-27 16:18] VITALS: BP 116/69; BP 118/62
[2017-07-27 20:25] VITALS: BP 132/76
[2017-07-28 01:05] VITALS: BP 148/74
[2017-07-28 05:16] VITALS: BP 110/54
[2017-07-28 06:20] LABS: BASOPHILS 0 % (0-2); EOSINOPHILS 0 % (0-7); HEMATOCRIT 42.8 % (42.0-54.0); HEMOGLOBIN 14.7 g/dL (13.5-17.5); IMMATURE GRANULOCYTES 0.2 % (0-5); MCH 30.5 pg (26.0-34.0); MCHC 34.3 g/dL (31.0-37.0); MCV 88.8 fL (80.0-100.0); MEAN PLATELET VOLUME 10.2 fL (7.4-10.4); MONOCYTES 2.4 % (2-11); NEUTROPHILS 92.4 % (40-80); PLATELET COUNT 360 10x3/uL (130-400); RBC 4.82 10x6/uL (4.20-6.10); RDW 14.8 % (11.5-14.5)
[2017-07-28 06:27] LABS: WBC 14.9 10x3/uL (4.8-10.8)
[2017-07-28 06:46] LABS: CALCIUM 9.7 mg/dL (8.5-10.1); CARBON DIOXIDE 26.2 mmol/L (21.0-32.0); CREATININE - SERUM 1.2 mg/dL (0.6-1.3); POTASSIUM - SERUM 4.2 mmol/L (3.5-5.1)
[2017-07-28 08:13] VITALS: BP 102/48
[2017-07-28 12:35] VITALS: BP 105/64
[2017-07-28 16:37] VITALS: BP 118/71
[2017-07-28 20:46] VITALS: BP 120/59
[2017-07-29 04:39] VITALS: BP 111/52
[2017-07-29 05:26] LABS: BASOPHILS 0 % (0-2); EOSINOPHILS 0 % (0-7); HEMATOCRIT 39.8 % (42.0-54.0); HEMOGLOBIN 13.4 g/dL (13.5-17.5); IMMATURE GRANULOCYTES 0.3 % (0-5); LYMPHOCYTES 5.2 % (15-50); MCH 30.3 pg (26.0-34.0); MCHC 33.7 g/dL (31.0-37.0); MEAN PLATELET VOLUME 10.3 fL (7.4-10.4); MONOCYTES 1.7 % (2-11); NEUTROPHILS 92.8 % (40-80); PLATELET COUNT 324 10x3/uL (130-400); RBC 4.42 10x6/uL (4.20-6.10); RDW 14.9 % (11.5-14.5); WBC 13.2 10x3/uL (4.8-10.8)
[2017-07-29 05:38] LABS: CALC OSMOLALITY 283 mosm/kg (275-300); CARBON DIOXIDE 28.6 mmol/L (21.0-32.0); CHLORIDE - SERUM 103 mmol/L (98-107); CREATININE - SERUM 1.1 mg/dL (0.6-1.3); GLUCOSE 175 mg/dL (74-106); POTASSIUM - SERUM 4.4 mmol/L (3.5-5.1); SODIUM 140 mmol/L (136-145); UREA NITROGEN 15 mg/dL (7-18); eGFR NON AFRICAN AMERICAN 75 mL/min (90-120)
[2017-07-29 08:00] VITALS: BP 134/87
[2017-07-29 08:26] VITALS: BP 130/86
[2017-07-29 12:51] VITALS: Ht 175.3 cm; Wt 102.1 kg
[2017-07-29 13:15] VITALS: BP 131/76
[2017-07-29 16:16] VITALS: BP 118/75
[2017-07-29 22:09] VITALS: BP 101/55
[2017-07-30 04:47] LABS: BASOPHILS 0 % (0-2); EOSINOPHILS 0 % (0-7); HEMATOCRIT 38.5 % (42.0-54.0); HEMOGLOBIN 12.9 g/dL (13.5-17.5); IMMATURE GRANULOCYTES 0.5 % (0-5); LYMPHOCYTES 6.1 % (15-50); MCH 30.1 pg (26.0-34.0); MCHC 33.5 g/dL (31.0-37.0); MCV 89.7 fL (80.0-100.0); MEAN PLATELET VOLUME 9.9 fL (7.4-10.4); MONOCYTES 2.1 % (2-11); NEUTROPHILS 91.3 % (40-80); PLATELET COUNT 293 10x3/uL (130-400); RBC 4.29 10x6/uL (4.20-6.10); RDW 14.4 % (11.5-14.5)
[2017-07-30 04:54] LABS: WBC 9.5 10x3/uL (4.8-10.8)
[2017-07-30 04:55] VITALS: BP 124/54
[2017-07-30 05:01] LABS: CALC OSMOLALITY 284 mosm/kg (275-300); CALCIUM 8.5 mg/dL (8.5-10.1); CARBON DIOXIDE 30.3 mmol/L (21.0-32.0); CHLORIDE - SERUM 104 mmol/L (98-107); CREATININE - SERUM 1.1 mg/dL (0.6-1.3); GLUCOSE 186 mg/dL (74-106); POTASSIUM - SERUM 4.2 mmol/L (3.5-5.1); SODIUM 139 mmol/L (136-145); UREA NITROGEN 17 mg/dL (7-18); eGFR NON AFRICAN AMERICAN 75 mL/min (90-120)
[2017-07-30 11:45] VITALS: BP 121/61
[2017-07-30 15:46] VITALS: BP 135/78
[2017-07-30 19:56] VITALS: BP 132/70
[2017-07-31] VITALS: BP 115/69
[2017-07-31 04:06] VITALS: BP 105/58
[2017-07-31 05:44] LABS: BASOPHILS 0 % (0-2); EOSINOPHILS 0 % (0-7); HEMATOCRIT 39.6 % (42.0-54.0); HEMOGLOBIN 13.5 g/dL (13.5-17.5); LYMPHOCYTES 5.6 % (15-50); MCH 30.5 pg (26.0-34.0); MCHC 34.1 g/dL (31.0-37.0); MCV 89.4 fL (80.0-100.0); MONOCYTES 3.5 % (2-11); NEUTROPHILS 89.9 % (40-80); PLATELET COUNT 280 10x3/uL (130-400); RBC 4.43 10x6/uL (4.20-6.10); RDW 14.1 % (11.5-14.5); WBC 9.1 10x3/uL (4.8-10.8)
[2017-07-31 06:06] LABS: ANION GAP 13.2 mmol/L (8-16); CALCIUM 8.9 mg/dL (8.5-10.1); CREATININE - SERUM 1.2 mg/dL (0.6-1.3); POTASSIUM - SERUM 4.2 mmol/L (3.5-5.1)
[2017-07-31 08:45] VITALS: BP 120/81
[2017-07-31 12:39] VITALS: BP 110/72
[2017-07-31 20:55] VITALS: BP 108/56
[2017-08-01 00:47] VITALS: BP 122/70
[2017-08-01 05:04] VITALS: BP 124/62
[2017-08-01 06:01] LABS: CALC OSMOLALITY 282 mosm/kg (275-300); CALCIUM 8.3 mg/dL (8.5-10.1); CARBON DIOXIDE 28.1 mmol/L (21.0-32.0); CHLORIDE - SERUM 104 mmol/L (98-107); GLUCOSE 152 mg/dL (74-106); POTASSIUM - SERUM 3.7 mmol/L (3.5-5.1); SODIUM 139 mmol/L (136-145); eGFR NON AFRICAN AMERICAN 84 mL/min (90-120)
[2017-08-01 06:04] LABS: UREA NITROGEN 19 mg/dL (7-18)
[2017-08-01 06:21] LABS: BASOPHILS 0.1 % (0-2); EOSINOPHILS 0 % (0-7); HEMATOCRIT 37.4 % (42.0-54.0); HEMOGLOBIN 12.8 g/dL (13.5-17.5); IMMATURE GRANULOCYTES 0.9 % (0-5); LYMPHOCYTES 5.5 % (15-50); MCH 30.3 pg (26.0-34.0); MCHC 34.2 g/dL (31.0-37.0); MCV 88.6 fL (80.0-100.0); NEUTROPHILS 87.5 % (40-80); PLATELET COUNT 257 10x3/uL (130-400); RBC 4.22 10x6/uL (4.20-6.10); WBC 11.2 10x3/uL (4.8-10.8)
[2017-08-01 08:04] VITALS: BP 118/76
[2017-08-01 12:34] VITALS: BP 139/80
[2017-08-01 16:03] VITALS: BP 115/69
[2017-08-01 21:46] VITALS: BP 137/79
[2017-08-02 00:38] VITALS: BP 125/71
[2017-08-02 08:07] VITALS: BP 152/99
[2017-08-02 09:34] LABS: BASOPHILS 0.1 % (0-2); EOSINOPHILS 0.2 % (0-7); HEMOGLOBIN 14.4 g/dL (13.5-17.5); IMMATURE GRANULOCYTES 1.9 % (0-5); LYMPHOCYTES 12.1 % (15-50); MCH 30.5 pg (26.0-34.0); MCHC 34.3 g/dL (31.0-37.0); MEAN PLATELET VOLUME 9.9 fL (7.4-10.4); MONOCYTES 6.4 % (2-11); NEUTROPHILS 79.3 % (40-80); PLATELET COUNT 229 10x3/uL (130-400); RBC 4.72 10x6/uL (4.20-6.10); RDW 13.8 % (11.5-14.5); WBC 10.7 10x3/uL (4.8-10.8)
[2017-08-02 09:49] LABS: ALBUMIN 3.1 g/dL (3.4-5.0); ALKALINE PHOSPHATASE 105 U/L (46-116); ALT (SGPT) 55 U/L (10-68); CALC OSMOLALITY 283 mosm/kg (275-300); CALCIUM 8.5 mg/dL (8.5-10.1); CARBON DIOXIDE 29.1 mmol/L (21.0-32.0); CHLORIDE - SERUM 106 mmol/L (98-107); GLUCOSE 136 mg/dL (74-106); POTASSIUM - SERUM 3.4 mmol/L (3.5-5.1); PROTEIN - SERUM 5.9 g/dL (6.4-8.2); SODIUM 141 mmol/L (136-145); UREA NITROGEN 16 mg/dL (7-18); eGFR NON AFRICAN AMERICAN 84 mL/min (90-120)
[2017-08-02] MEDS ORDERED: LEVAQUIN500 MG PO (10:42)
[2017-08-02] MEDS ORDERED: QUESTRAN LIG1 PACKET PO (10:43)
[2017-08-02] MEDS ORDERED: TESSALON PERLE100 MG PO (10:43)
[2017-08-02] MEDS ORDERED: FLUTICASONE PRO16 GM NASAL (10:44)
[2017-08-02] MEDS ORDERED: ROBITUSSIN DM 110 ML PO (10:44)
[2017-08-02] MEDS ORDERED: CREON (PANCRELI1 CAP PO (10:46)
[2017-08-02] MEDS ORDERED: LOMOTIL TABLET1 TAB PO (12:22)
[2017-08-02 14:17] LABS: AMINOLEVULINIC ACID - 24HR 3.6 mg/24 hr (0.5-5.1); AMINOLEVULINIC ACID - URINE 1.3 mg/L (Undefined)
[2017-08-03 15:20] LABS: 5HIAA - 24HR 5.9 mg/24 hr (0.0-14.9); 5HIAA - UR 2.1 mg/L (Undefined); METAN - URINE 35 ug/L (Undefined); METAN - URINE 24HR 98 ug/24 hr (45-290)
== END 2017-08-02 12:00 | disposition home or self-care (01) | DRG 205 ==
LOC: D.ER 17:24 → D.MS 19:05 → OBSVTIME 19:05 → D.MS 07-28 17:07
PROVIDERS: Family Medicine; Internal Medicine Gastroenterology; Internal Medicine Nephrology
PROC: 0DB98ZX Excision of Duodenum, Via Natural or Artificial Opening Endoscopic, Diagnostic (ICD-10-PCS; principal; 2017-07-29 05:24)
DX: J95.89 Other postprocedural complications and disorders of respiratory system, not elsewhere classified (principal); J96.01 Acute respiratory failure with hypoxia; J69.0 Pneumonitis due to inhalation of food and vomit; J45.901 Unspecified asthma with (acute) exacerbation; R64 Cachexia; J98.11 Atelectasis; N17.9 Acute kidney failure, unspecified; K86.81 Exocrine pancreatic insufficiency; K52.9 Noninfective gastroenteritis and colitis, unspecified; Z68.33 Body mass index [BMI] 33.0-33.9, adult; E09.9 Drug or chemical induced diabetes mellitus without complications; I10 Essential (primary) hypertension; K21.9 Gastro-esophageal reflux disease without esophagitis; E66.01 Morbid (severe) obesity due to excess calories; K30 Functional dyspepsia; Z88.1 Allergy status to other antibiotic agents; Z88.8 Allergy status to other drugs, medicaments and biological substances; I12.9 Hypertensive chronic kidney disease with stage 1 through stage 4 chronic kidney disease, or unspecified chronic kidney disease; N18.9 Chronic kidney disease, unspecified; Y83.8 Other surgical procedures as the cause of abnormal reaction of the patient, or of later complication, without mention of misadventure at the time of the procedure

== ENCOUNTER → 2017-09-16 13:55 | Outpatient (CLI) | payer BC ==
[2017-07-29 12:51] VITALS: BMI 33.2
[~2017-09-16 13:55] MED LIST changes: +CREON (PANCRELI1 CAP PO; +LOMOTIL TABLET1 TAB PO; +NORTRIPTYLINE H50 MG PO; +QUESTRAN LIG1 PACKET PO; +ROBITUSSIN DM 110 ML PO; +TESSALON PERLE100 MG PO
== END | disposition home or self-care (01) ==
LOC: D.RT 09-10 11:00 → D.RAD 09-10 11:00 → D.RT 09-14 14:00 → D.RAD 09-14 14:45 → D.RT 13:55
DX: J45.909 Unspecified asthma, uncomplicated (principal)

== ENCOUNTER → 2017-10-19 07:11 | Outpatient (CLI) | payer BC ==
[2017-07-29 12:51] VITALS: BMI 33.2
== END | disposition home or self-care (01) ==
LOC: D.NM 07:11
DX: R14.3 Flatulence (principal); R14.0 Abdominal distension (gaseous); R10.13 Epigastric pain

== ENCOUNTER → 2018-02-02 12:26 | Outpatient (CLI) | payer BC ==
[2017-07-29 12:51] VITALS: BMI 33.2
== END | disposition home or self-care (01) ==
LOC: D.LABREF 12:26
PROVIDERS: Internal Medicine Gastroenterology
DX: R19.7 Diarrhea, unspecified (principal)

== ENCOUNTER 2018-02-13 18:43 | Inpatient (IN) | payer BC ==
[~2018-02-13] VITALS: Ht 175.3 cm; Wt 94.7 kg
[~2018-02-13 18:43] MED LIST changes: -PEPCID20 MG PO; +PEPCID40 MG PO
[2018-02-13 19:20] VITALS: BP 158/108
[2018-02-13 19:38] LABS: BASOPHILS 0.8 % (0-2); EOSINOPHILS 7.1 % (0-7); HEMOGLOBIN 15.8 g/dL (13.5-17.5); IMMATURE GRANULOCYTES 0.2 % (0-5); LYMPHOCYTES 19.3 % (15-50); MCH 30.5 pg (26.0-34.0); MCHC 34.3 g/dL (31.0-37.0); MCV 88.8 fL (80.0-100.0); MEAN PLATELET VOLUME 10.2 fL (7.4-10.4); MONOCYTES 5.4 % (2-11); NEUTROPHILS 67.2 % (40-80); PLATELET COUNT 327 10x3/uL (130-400); RBC 5.18 10x6/uL (4.20-6.10); RDW 12.6 % (11.5-14.5)
[2018-02-13 19:57] LABS: ALBUMIN 3.8 g/dL (3.4-5.0); ALKALINE PHOSPHATASE 148 U/L (46-116); ALT (SGPT) 53 U/L (10-68); BILIRUBIN - TOTAL 0.32 mg/dL (0.2-1.3); CALC OSMOLALITY 280 mosm/kg (275-300); CALCIUM 8.8 mg/dL (8.5-10.1); CARBON DIOXIDE 23.8 mmol/L (21.0-32.0); CHLORIDE - SERUM 103 mmol/L (98-107); CREATININE - SERUM 1.3 mg/dL (0.6-1.3); GLUCOSE 147 mg/dL (74-106); POTASSIUM - SERUM 4.8 mmol/L (3.5-5.1); PROTEIN - SERUM 6.5 g/dL (6.4-8.2); SODIUM 139 mmol/L (136-145); UREA NITROGEN 12 mg/dL (7-18); eGFR NON AFRICAN AMERICAN 62 mL/min (90-120)
[2018-02-13 20:10] LABS: CREATINE KINASE 431 UL (21-232); LIPASE 100 U/L (73-393); MAGNESIUM - SERUM 1.8 mg/dL (1.8-2.4)
[2018-02-13 20:12] VITALS: BP 129/92
[2018-02-13 20:15] LABS: TROPONIN-I < 0.017 ng/mL (0.000-0.060)
[2018-02-13 22:05] VITALS: BP 151/95
[2018-02-13] MEDS ORDERED: FLAGYL500 MG PO (22:06)
[2018-02-14] VITALS (7 sets, daily range): BP systolic 104–154; BP diastolic 63–102; Ht 175.3 cm; Wt 94.7 kg
[2018-02-14 05:59] LABS: BASOPHILS 0.1 % (0-2); EOSINOPHILS 0 % (0-7); HEMATOCRIT 47.3 % (42.0-54.0); HEMOGLOBIN 16.1 g/dL (13.5-17.5); IMMATURE GRANULOCYTES 0.1 % (0-5); LYMPHOCYTES 9.5 % (15-50); MCH 30.3 pg (26.0-34.0); MCV 88.9 fL (80.0-100.0); MEAN PLATELET VOLUME 10.5 fL (7.4-10.4); MONOCYTES 0.6 % (2-11); NEUTROPHILS 89.7 % (40-80); PLATELET COUNT 320 10x3/uL (130-400); RBC 5.32 10x6/uL (4.20-6.10); RDW 12.5 % (11.5-14.5)
[2018-02-14 06:12] LABS: ANION GAP 16.8 mmol/L (8-16); CALCIUM 9.1 mg/dL (8.5-10.1); CARBON DIOXIDE 26.1 mmol/L (21.0-32.0); CREATININE - SERUM 1.3 mg/dL (0.6-1.3); POTASSIUM - SERUM 4.9 mmol/L (3.5-5.1)
[2018-02-14 06:43] LABS: WBC 6.7 10x3/uL (4.8-10.8)
[2018-02-15 02:02] VITALS: BP 102/51
[2018-02-15 06:04] LABS: BASOPHILS 0 % (0-2); EOSINOPHILS 0 % (0-7); HEMATOCRIT 44.4 % (42.0-54.0); HEMOGLOBIN 15.2 g/dL (13.5-17.5); IMMATURE GRANULOCYTES 0.3 % (0-5); LYMPHOCYTES 5.9 % (15-50); MCH 30.3 pg (26.0-34.0); MCHC 34.2 g/dL (31.0-37.0); MCV 88.4 fL (80.0-100.0); MEAN PLATELET VOLUME 10.6 fL (7.4-10.4); NEUTROPHILS 91.8 % (40-80); PLATELET COUNT 325 10x3/uL (130-400); RBC 5.02 10x6/uL (4.20-6.10); RDW 12.7 % (11.5-14.5)
[2018-02-15 06:09] VITALS: BP 100/40
[2018-02-15 06:34] LABS: WBC 11.7 10x3/uL (4.8-10.8)
[2018-02-15 06:35] LABS: ALBUMIN 3.7 g/dL (3.4-5.0); ANION GAP 15.5 mmol/L (8-16); BILIRUBIN - TOTAL 0.31 mg/dL (0.2-1.3); CALCIUM 9.1 mg/dL (8.5-10.1); CARBON DIOXIDE 24.9 mmol/L (21.0-32.0); CREATININE - SERUM 1.3 mg/dL (0.6-1.3); POTASSIUM - SERUM 4.4 mmol/L (3.5-5.1); PROTEIN - SERUM 6.8 g/dL (6.4-8.2)
[2018-02-15 08:24] VITALS: BP 93/42
[2018-02-15 11:09] VITALS: BP 106/49
[2018-02-15] MEDS ORDERED: PREDNISONE10 MG PO (15:44)
--- NOTE | 2018-02-16 09:22 | MORECARE ---
CASE MANAGEMENT DISCHARGE SUMMARY PATIENT: KAN SERVIN UNIT: [id number] ADM DATE: 02/14/18 AGE: 52 : 67 SEX: M ROOM/BED: D.2126 AUTHOR: DAXA MARTINEZ PHYSICIAN: REFERRING PHYSICIAN: ELIZABETH FLORES MD DATE OF SERVICE: 02/16/18 Discharge Plan Patient Name: KAN SERVIN [facility] [facility] 1965 Planned Disposition: Home Anticipated Discharge Date: 02/15/18 Discharge Date: 02/15/2018 Expected LOS: 1 Initial Reviewer: [email or web address] Initial Review Date: 02/16/2018 Generated: 02/16/18 10:22 am Patient Name: KAN SERVIN Page [id number] at 0922 All edits/amendments must be made on the electronic document DICTATION DATE: 02/16/18920 HEAD OF CYTOGENETICS: PARUL 02/16/18920 RPT#: [id number] DC DATE:02/15/18 STATUS: DIS IN [facility] [address] [place] [address] END OF REPORT
== END 2018-02-15 17:15 | disposition home or self-care (01) | DRG 203 ==
LOC: D.ER 18:43 → D.M2 20:09 → D.EDHOLD 20:09 → OBSVTIME 20:09 → D.M2 20:33
PROVIDERS: Family Medicine; ADMIT Internal Medicine Nephrology
DX: J45.901 Unspecified asthma with (acute) exacerbation (principal); K52.9 Noninfective gastroenteritis and colitis, unspecified; K21.9 Gastro-esophageal reflux disease without esophagitis; I10 Essential (primary) hypertension; M54.81 Occipital neuralgia

== ENCOUNTER 2018-03-29 16:47 | Inpatient (IN) | payer BC ==
[~2018-03-29] VITALS: Ht 175.3 cm; Wt 93.7 kg
[~2018-03-29 16:47] MED LIST changes: +PREDNISONE10 MG PO
[2018-03-29 17:17] LABS: BASOPHILS 0.1 % (0-2); EOSINOPHILS 0 % (0-7); HEMOGLOBIN 17.2 g/dL (13.5-17.5); IMMATURE GRANULOCYTES 0.5 % (0-5); MCH 30.3 pg (26.0-34.0); MCHC 35.1 g/dL (31.0-37.0); MCV 86.4 fL (80.0-100.0); MEAN PLATELET VOLUME 10.6 fL (7.4-10.4); MONOCYTES 2.3 % (2-11); NEUTROPHILS 82.1 % (40-80); PLATELET COUNT 300 10x3/uL (130-400); RBC 5.67 10x6/uL (4.20-6.10); RDW 13.5 % (11.5-14.5); WBC 11.2 10x3/uL (4.8-10.8)
[2018-03-29 17:22] LABS: APTT 26.4 SECONDS (22.8-39.4); INR 1.1 (0.85-1.17); PROTIME 13.7 SECONDS (11.6-15.0)
[2018-03-29 17:28] LABS: ALBUMIN 4.1 g/dL (3.4-5.0); ALKALINE PHOSPHATASE 177 U/L (46-116); ALT (SGPT) 44 U/L (10-68); BILIRUBIN - TOTAL 0.72 mg/dL (0.2-1.3); CALC OSMOLALITY 279 mosm/kg (275-300); CALCIUM 9.6 mg/dL (8.5-10.1); CARBON DIOXIDE 19.5 mmol/L (21.0-32.0); CHLORIDE - SERUM 101 mmol/L (98-107); CREATININE - SERUM 1.5 mg/dL (0.6-1.3); GLUCOSE 167 mg/dL (74-106); POTASSIUM - SERUM 4.2 mmol/L (3.5-5.1); PROTEIN - SERUM 7.8 g/dL (6.4-8.2); SODIUM 137 mmol/L (136-145); UREA NITROGEN 17 mg/dL (7-18); eGFR NON AFRICAN AMERICAN 52 mL/min (90-120)
[2018-03-29 17:39] LABS: CKMB 2.4 U/L (0.0-3.6); CREATINE KINASE 252 UL (21-232); PRO BNP 70 pg/mL (0-125)
[2018-03-29 17:44] LABS: TROPONIN-I < 0.017 ng/mL (0.000-0.060)
--- NOTE | 2018-03-29 19:48 | NUR ---
report given to MARYANN Robledo.
--- NOTE | 2018-03-29 20:10 | NUR ---
PATIENT ARRIVED FROM ER VIA WHEELCHAIR. RECEIVED REPORT FROM BRENDA. PATIENT IS ALERT AND ORIENTED, RESTING COMFORTABLY IN BED. RESPIRATIONS ARE EVEN AND UNLABORED. NO S/S OF DISTRESS. NO C/O PAIN. CALL LIGHT WITHIN REACH FAMILY AT BEDSIDE. WILL CPOC.
--- NOTE | 2018-03-29 20:21 | NUR ---
TAMIFLU GIVEN PREVIOUS SHIFT PER REPROT FROM VICTOR HUGO, RN
[2018-03-29] MEDS ORDERED: ZYRTEC10 MG PO (20:50)
[2018-03-29] MEDS ORDERED: IPRAT-ALBUT 0.5-3 ML UPD (20:52)
--- NOTE | 2018-03-29 21:20 | NUR ---
CALLED CLAUDINE FLYNN. PATIENT REQUESTING HIS HS MEDS. NO ORDERS GIVEN. WILL CPOC.
[2018-03-29 23:28] VITALS: BP 112/67; BMI 31.3
[2018-03-30] VITALS: BP 120/64
[2018-03-30 04:00] VITALS: BP 116/61
[2018-03-30 08:14] VITALS: BP 129/66
--- NOTE | 2018-03-30 10:36 | NUR ---
ALERT AND ORIENTED X4. SITTING UP IN BED. ON DROPLET ISOLATION FOR FLU. DENIES ANY NEEDS. SPOUSE AT BEDSIDE. PETERSON BENITEZ RESUMES PLAN OF CARE. AGREE WITH ASSESSMENT.
--- NOTE | 2018-03-30 11:51 | NUR ---
SCD'S PLACED ON PT.
[2018-03-30 12:11] VITALS: BP 109/55
[2018-03-30 15:33] VITALS: BP 119/68
[2018-03-30 16:48] VITALS: Ht 175.3 cm; Wt 93.7 kg
--- NOTE | 2018-03-30 16:56 | NUR ---
SPOKE WITH CHANO Bennett AND STATED TO HIM DR. SPEARS WANTED ME TO MAKE SURE PT GOT A FLUTTER VALVE AND TEACHING WAS DONE. CHANO Bennett VERBALIZED UNDERSTANDING AND STATED HE WILL DO IT.
[2018-03-30 20:00] VITALS: BP 113/69
--- NOTE | 2018-03-30 20:51 | NUR ---
HS MEDS GIVEN WITH FRESH ICE WATER. TYELNOL #3 GIVEN FOR C/O GENERALIZED PAIN. PTS AT BED SIDE, BED LOW, CL IN REACH.
[2018-03-31] VITALS: BP 105/61
--- NOTE | 2018-03-31 02:01 | NUR ---
RESTING WITH EYES CLOSED, RESPERATIONS EVEN, NO S/S DISTRESS NOTED.
[2018-03-31 04:00] VITALS: BP 108/58
[2018-03-31 06:23] LABS: CALCIUM 8.5 mg/dL (8.5-10.1); CREATININE - SERUM 1.5 mg/dL (0.6-1.3); MAGNESIUM - SERUM 2.2 mg/dL (1.8-2.4)
[2018-03-31 06:34] LABS: ANION GAP 15.1 mmol/L (8-16); CARBON DIOXIDE 25.8 mmol/L (21.0-32.0); POTASSIUM - SERUM 4.9 mmol/L (3.5-5.1)
[2018-03-31 06:55] LABS: HEMATOCRIT 44.1 % (42.0-54.0); HEMOGLOBIN 14.6 g/dL (13.5-17.5); IMMATURE GRANULOCYTES 0.4 % (0-5); MCH 30.3 pg (26.0-34.0); MCHC 33.1 g/dL (31.0-37.0); MCV 91.5 fL (80.0-100.0); MEAN PLATELET VOLUME 11.1 fL (7.4-10.4); PLATELET COUNT 284 10x3/uL (130-400); RBC 4.82 10x6/uL (4.20-6.10); RDW 13.8 % (11.5-14.5); WBC 20.1 10x3/uL (4.8-10.8)
--- NOTE | 2018-03-31 07:00 | NUR ---
PTS AT NURSES STATION STATING THAT HE IS HAVING " HORRIBLE CHEST PAIN AND NEEDS HELP RIGHT NOW" WENT TO ROOM, PT CLENCHING CHEST, STATED THAT HIS PAIN IS AT A 10 ON PAIN SCALE. PT DENIES HAVING PREVIOUS STENTS OR CARDIAC HISTORY. LEFT ROOM TO GET PAIN MEDICATION AND EKG. TYLENOL #3 GIVEN, EKG OBTAIN, 86 SR. BP 120/63. CARDIAC ENZYMES AND CHEST XRAY ORDERED. PAGE OUT TO CLAUDINE FLYNN APN CARD BRUSHER FOR DR CHRIS TO NOTIFY OF SITUATION.
[2018-03-31 08:00] LABS: CKMB 3.6 U/L (0.0-3.6); CREATINE KINASE 71 UL (21-232); TROPONIN-I < 0.017 ng/mL (0.000-0.060)
[2018-03-31 08:40] VITALS: BP 116/61
[2018-03-31 09:49] LABS: LYMPHOCYTES 5 % (15-50); MONOCYTES 4 % (2-11); NEUTROPHILS 83 % (40-80); PLATELET ESTIMATE NORMAL
[2018-03-31 14:31] LABS: CREATINE KINASE 55 UL (21-232); TROPONIN-I < 0.017 ng/mL (0.000-0.060)
[2018-03-31 15:56] VITALS: BP 109/53
--- NOTE | 2018-03-31 18:59 | NUR ---
PT IN BED. AT BEDSIDE. PT DENIES NEEDS AT THIS TIME.
[2018-03-31 20:00] VITALS: BP 121/65
[2018-03-31 20:37] LABS: CKMB 2.3 U/L (0.0-3.6); CREATINE KINASE 47 UL (21-232)
[2018-03-31 20:39] LABS: TROPONIN-I < 0.017 ng/mL (0.000-0.060)
[2018-04-01] VITALS: BP 127/77
[2018-04-01 04:00] VITALS: BP 119/65
--- NOTE | 2018-04-01 04:00 | NUR ---
ROAD ADVISOR AT BEDSIDE TO OBTAIN VITALS, CALL LIGHT IN REACH. WILL CONTINUE WITH PLAN OF CARE.
[2018-04-01 05:54] LABS: ANION GAP 11.5 mmol/L (8-16); CALCIUM 8.4 mg/dL (8.5-10.1); CARBON DIOXIDE 29.1 mmol/L (21.0-32.0); CREATININE - SERUM 1.3 mg/dL (0.6-1.3); MAGNESIUM - SERUM 2.1 mg/dL (1.8-2.4); POTASSIUM - SERUM 4.6 mmol/L (3.5-5.1)
[2018-04-01 06:13] LABS: HEMOGLOBIN 14.5 g/dL (13.5-17.5); LYMPHOCYTES 5.6 % (15-50); MCH 30.5 pg (26.0-34.0); MCHC 34.5 g/dL (31.0-37.0); MEAN PLATELET VOLUME 10.4 fL (7.4-10.4); NEUTROPHILS 92.7 % (40-80); PLATELET COUNT 235 10x3/uL (130-400); RBC 4.75 10x6/uL (4.20-6.10); RDW 12.8 % (11.5-14.5); WBC 15.4 10x3/uL (4.8-10.8)
[2018-04-01 06:15] LABS: MCV 88.4 fL (80.0-100.0)
--- NOTE | 2018-04-01 07:28 | NUR ---
PT LYING IN BED, ASKED TO CHECK HIS IV. IV IS INTACT. WILL FLUSH WITH MORNING MEDS AND REDRESS IN A MORE COMFORTABLE DRESSING. ISOLATION FOLLOWED. CL IN REACH. SRX2. NO COMPLAINTS/CONCERNS AT THIS TIME.
--- NOTE | 2018-04-01 08:17 | NUR ---
NUMBER [phone] (NIC). REQUESTS JOSESITO. WILL ATTEND.
[2018-04-01 08:20] VITALS: BP 129/75
[2018-04-01 13:01] VITALS: BP 127/71
--- NOTE | 2018-04-01 13:29 | NUR ---
REVIEWED AND AGREE WITH ASSESMENT.
[2018-04-01 16:53] VITALS: BP 119/71
[2018-04-01 20:00] VITALS: BP 142/79
--- NOTE | 2018-04-01 20:07 | NUR ---
RECIEVED UP IN BED WITH SPOUSE AT BEDSIDE. ALERT AND ORIENTED X4. UP AD QUE. IV TO LEFT AC SL. REMAINS IN DROPLET ISOLATION R/T POSITIVE INFLUENZA. DENIES ANY NEEDS AT THIS TIME.
[2018-04-02 00:05] VITALS: BP 144/88
[2018-04-02 04:00] VITALS: BP 138/97
[2018-04-02 06:12] LABS: CREATININE - SERUM 1.2 mg/dL (0.6-1.3); MAGNESIUM - SERUM 2.1 mg/dL (1.8-2.4)
[2018-04-02 06:13] LABS: ANION GAP 12.1 mmol/L (8-16); CALCIUM 8.4 mg/dL (8.5-10.1); CARBON DIOXIDE 29.4 mmol/L (21.0-32.0); POTASSIUM - SERUM 4.5 mmol/L (3.5-5.1)
[2018-04-02 06:40] LABS: BASOPHILS 0.1 % (0-2); EOSINOPHILS 0 % (0-7); HEMOGLOBIN 14.8 g/dL (13.5-17.5); IMMATURE GRANULOCYTES 0.9 % (0-5); LYMPHOCYTES 6.2 % (15-50); MCH 30.1 pg (26.0-34.0); MCHC 34.4 g/dL (31.0-37.0); MCV 87.6 fL (80.0-100.0); MEAN PLATELET VOLUME 10.8 fL (7.4-10.4); MONOCYTES 2.2 % (2-11); NEUTROPHILS 90.6 % (40-80); PLATELET COUNT 249 10x3/uL (130-400); RBC 4.91 10x6/uL (4.20-6.10); WBC 13.4 10x3/uL (4.8-10.8)
--- NOTE | 2018-04-02 08:19 | NUR ---
PATIENT IS RESTING QUIETLY AT THIS TIME. DENIES ANY NEEDS.
[2018-04-02 09:57] VITALS: BP 149/86
--- NOTE | 2018-04-02 11:09 | NUR ---
RN ROUNDS. PATIENT RESTING WELL. REMAINS IN ISOLATION FOR INFLUENZA. PATIENT ON TELEMETRY WITH A RATE OF 82, SINUS RHYTHM. NO DISTRESS.
[2018-04-02 12:46] VITALS: BP 142/91
[2018-04-02] MEDS ORDERED: LEVAQUIN750 MG PO (16:37)
[2018-04-02] MEDS ORDERED: TAMIFLU75 MG PO (16:38)
[2018-04-02] MEDS ORDERED: PREDNISONE10 MG PO (16:39)
--- NOTE | 2018-04-02 20:36 | NUR ---
D/C'D IV TO LEFT AC WITH CATH INTACT. CALLED DR. BOBBY WITH ORDERS TO CALL IN LEVAQUIN, PREDNISONE TAPER PACK AND ONE DAY DOSAGE OF TAMIFLU. CALLED INTO [facility] [address] PER PT PREFERENCE. INSTUCTED ON DISCHARGE ORDERS AND ASSIST TO FRONT DOOR IN W/C. SPOUSE AT HIS SIDE.
--- NOTE | 2018-04-05 14:51 | EC ---
PATIENT:KAN SERVIN DATE OF SERVICE: 03/29/18 SEX: M MEDICAL RECORD: [id number] DATE OF : 67 LOCATION:D. D.212 AGE OF PATIENT: 52 ADMISSION DATE: 03/29/18 REFERRING PHYSICIAN: INTERPRETING PHYSICIAN: DAGMAR CABAN MD ECHOCARDIOGRAM REPORT ECHO CHARGES 4 ECHO COMPLETE Date: 03/31/18 CLINICAL DIAGNOSIS: SVT ECHOCARDIOGRAPHIC MEASUREMENTS (adult normal given) AC root (d.<3.7cm) 3.5 cm LV Septum d (<1.2 cm> 1.5 cm Valve Excursion 2.0 cm LV Septum (systole) 1.8 cm Left Atria (s.<4.0cm> 3.5 cm LVPW d(<1.2cm) 1.5 cm RV (d.<2.3cm) 3.5 cm LVPW (sytole) 1.7 cm LV diastole(<5.6CM) 4.9 cm MV E-F(>70mm/sec) cm LV systole 3.4 cm LVOT Diameter 2.1 cm MV exc.(>10mm) 1.7 cm Est.ejection fraction (50-75%) % DOPPLER: LVIT cm/sec A 76.0 cm/sec E 85.0 cm/sec LA cm/sec RVSP 24 mmHg LVOT 111 cm/sec AOP1/2T m/s Asc. Ao 143 cm/sec RVOT 91 cm/sec RA cm/sec PA 146 cm/sec AV Gradient Peak 8.19 mmHg AV Mean 4.62 mmHg AV Area 2.8 cm MV Gradient Peak 4.37 mmHg MV Mean 1.83 mmHg MV Area cm COMMENTS: Commercial Lending Assistant: 2 ROBERT CLAYTON Record Pressman: 3 Dr. Barillas TAPE# PACS Pericardial Effusion N DATE OF SERVICE: Adequate 2D, Color Flow, Spectral Doppler, M-Mode Borderline LVH. LV internal dimension is normal. Wall motion is normal. EF is greater than 55%. Aortic valve is tricuspid. No evidence of stenosis by Doppler interrogation. Left atrium is normal. Mitral valve showed no prolapse. Trace MR. Right-sided chamber is grossly normal. Trace TR. TRANSINT:[id number] Voice Confirmation ID: [id number] DOCUMENT ID: [id number] ECHOCARDIOGRAM REPORT [id number] KAN SERVIN DAGMAR CABAN MD at 1451 CC: [id number] DICTATION DATE: 03/31/18 1619 SHEET METAL PRODUCTION WORKER: 03/31/182210 DIS IN 04/02/18 [address] [place] [address]
--- NOTE | 2018-04-06 09:33 | MORECARE ---
CASE MANAGEMENT DISCHARGE SUMMARY PATIENT: KAN SERVIN UNIT: [id number] ADM DATE: 03/29/18 AGE: 52 : 67 SEX: M ROOM/BED: D.6348 AUTHOR: DAXA MARTIENZ PHYSICIAN: REFERRING PHYSICIAN: HOSEA CHRIS MD DATE OF SERVICE: 04/06/18 Discharge Plan Patient Name: KAN SERVIN [facility] [facility] 1965 Planned Disposition: Home Anticipated Discharge Date: 04/02/18 Discharge Date: 04/02/2018 Expected LOS: 4 Initial Reviewer: [email or web address] Initial Review Date: 04/06/2018 Generated: 04/06/18 10:32 am Patient Name: KAN SERVIN Page [phone] at 0933 All edits/amendments must be made on the electronic document DICTATION DATE: 04/06/18931 RAILROAD CAR CLEANING SUPERVISOR: PARUL 04/06/18931 RPT#: [id number] DC DATE:04/02/18 STATUS: DIS IN [facility] [address] [facility] [place] [address] END OF REPORT
== END 2018-04-02 20:40 | disposition home or self-care (01) | DRG 194 ==
LOC: D.ER 16:47 → D.EDHOLD 17:42 → D.M2 17:42
PROVIDERS: Emergency Medicine; ADMIT Family Medicine Adult Medicine
DX: J10.1 Influenza due to other identified influenza virus with other respiratory manifestations (principal); J45.901 Unspecified asthma with (acute) exacerbation; I47.1 Supraventricular tachycardia; I10 Essential (primary) hypertension

== ENCOUNTER → 2018-05-04 13:41 | Outpatient (CLI) | payer BC ==
[2018-03-30 16:48] VITALS: BMI 31.3
[~2018-05-04 13:41] MED LIST changes: +IPRAT-ALBUT 0.5-3 ML UPD; +LEVAQUIN750 MG PO; +TAMIFLU75 MG PO
== END | disposition home or self-care (01) ==
LOC: D.RT 13:41
PROVIDERS: ATTEND Internal Medicine Pulmonary Disease
DX: J45.909 Unspecified asthma, uncomplicated (principal)

== ENCOUNTER 2019-02-05 21:38 | Inpatient (IN) | payer BC ==
[~2019-02-05] VITALS: Ht 175.3 cm; Wt 97.7 kg
[2019-02-05 22:05] LABS: BASOPHILS 0.2 % (0-2); EOSINOPHILS 0.4 % (0-7); HEMATOCRIT 44.3 % (42.0-54.0); HEMOGLOBIN 15.5 g/dL (13.5-17.5); IMMATURE GRANULOCYTES 0.1 % (0-5); MCH 30.6 pg (26.0-34.0); MCV 87.4 fL (80.0-100.0); MEAN PLATELET VOLUME 9.9 fL (7.4-10.4); MONOCYTES 6.4 % (2-11); NEUTROPHILS 65.9 % (40-80); RBC 5.07 10x6/uL (4.20-6.10); RDW 13.3 % (11.5-14.5)
[2019-02-05 22:10] LABS: PLATELET COUNT 300 10x3/uL (130-400)
[2019-02-05 22:16] LABS: APTT 26.2 SECONDS (22.8-39.4); INR 0.97 (0.85-1.17); PROTIME 12.4 SECONDS (11.6-15.0)
--- NOTE | 2019-02-05 22:17 | NUR ---
RT AT BEDSIDE
[2019-02-05 22:18] LABS: CALC OSMOLALITY 284 mosm/kg (275-300); CALCIUM 9.4 mg/dL (8.5-10.1); CARBON DIOXIDE 24.6 mmol/L (21.0-32.0); CHLORIDE - SERUM 105 mmol/L (98-107); CREATININE - SERUM 1.2 mg/dL (0.6-1.3); GLUCOSE 127 mg/dL (74-106); POTASSIUM - SERUM 3.7 mmol/L (3.5-5.1); SODIUM 142 mmol/L (136-145); UREA NITROGEN 12 mg/dL (7-18); eGFR NON AFRICAN AMERICAN 67 mL/min (90-120)
[2019-02-05 22:33] LABS: ALBUMIN 3.8 g/dL (3.4-5.0); ALKALINE PHOSPHATASE 124 U/L (46-116); ALT (SGPT) 44 U/L (10-68); BILIRUBIN - TOTAL 0.37 mg/dL (0.2-1.3); CREATINE KINASE 127 UL (21-232); PRO BNP 18 pg/mL (0-125); PROTEIN - SERUM 6.7 g/dL (6.4-8.2)
[2019-02-05 22:34] LABS: TROPONIN-I < 0.017 ng/mL (0.000-0.060)
--- NOTE | 2019-02-05 22:36 | NUR ---
PT PLACED ON 1.5L O2 AT THIS TIME.
[2019-02-05 23:00] VITALS: BP 108/68
--- NOTE | 2019-02-05 23:30 | NUR ---
PT RESTING ON BED. SPOUSE AT BEDSIDE. PT REPORTS DECREASE IN SOB AT THIS TIME.
[2019-02-06] VITALS (9 sets, daily range): BP systolic 101–179; BP diastolic 50–96; Ht 175.3 cm; Wt 97.7 kg
--- NOTE | 2019-02-06 00:55 | NUR ---
PT RESTING ON BED. EYES CLOSED. VS WNL. SPOUSE AT SIDE.
--- NOTE | 2019-02-06 03:00 | NUR ---
ASSESSMENT DONE SEE FLOW SHEET. VSS. PT VERBALIZES NO COMPLAINTS. NO SIGNS OF ACUTE DISTRESS WILL CONTINUE TO MONITOR.
[2019-02-06 04:02] LABS: BASOPHILS 0 % (0-2); EOSINOPHILS 0 % (0-7); HEMATOCRIT 42.8 % (42.0-54.0); HEMOGLOBIN 14.7 g/dL (13.5-17.5); IMMATURE GRANULOCYTES 0.1 % (0-5); LYMPHOCYTES 6.6 % (15-50); MCH 30.4 pg (26.0-34.0); MCHC 34.3 g/dL (31.0-37.0); MCV 88.4 fL (80.0-100.0); MEAN PLATELET VOLUME 10.3 fL (7.4-10.4); MONOCYTES 1.4 % (2-11); NEUTROPHILS 91.9 % (40-80); PLATELET COUNT 279 10x3/uL (130-400); RBC 4.84 10x6/uL (4.20-6.10); RDW 13.4 % (11.5-14.5); WBC 7.9 10x3/uL (4.8-10.8)
[2019-02-06 04:44] LABS: ALBUMIN 3.6 g/dL (3.4-5.0); ANION GAP 15.7 mmol/L (8-16); BILIRUBIN - TOTAL 0.29 mg/dL (0.2-1.3); CALCIUM 8.7 mg/dL (8.5-10.1); CARBON DIOXIDE 24.4 mmol/L (21.0-32.0); CREATININE - SERUM 1.4 mg/dL (0.6-1.3); POTASSIUM - SERUM 4.1 mmol/L (3.5-5.1); PROTEIN - SERUM 6.3 g/dL (6.4-8.2)
--- NOTE | 2019-02-06 05:00 | NUR ---
IO COLLECTED. NO SINGS OF ACUTE DISTRESS WILL CONTINUE TO MONITOR.
--- NOTE | 2019-02-06 19:42 | NUR ---
RECEIVED UP IN BED WITH EYES OPEN AND TV ON. SPOUSE AT BEDSIDE. ALERT AND ORIETNED X4. UP AD QUE. IV TO LEFT FA WITH NS AT 75CC/HR. REQUESTED A CALL TO MD FOR PEPCID HE TAKES AT HOME TWICE A DAY. DENIES ANY OTHER NEEDS AT THIS TIME.
[2019-02-07 04:15] VITALS: BP 104/47
[2019-02-07 06:42] LABS: ANION GAP 14.6 mmol/L (8-16); CARBON DIOXIDE 25.2 mmol/L (21.0-32.0); CREATININE - SERUM 1.3 mg/dL (0.6-1.3); MAGNESIUM - SERUM 1.9 mg/dL (1.8-2.4); POTASSIUM - SERUM 3.8 mmol/L (3.5-5.1)
[2019-02-07 07:34] VITALS: BP 92/42
[2019-02-07 07:37] LABS: BASOPHILS 0 % (0-2); EOSINOPHILS 0 % (0-7); HEMATOCRIT 40.8 % (42.0-54.0); IMMATURE GRANULOCYTES 0.2 % (0-5); LYMPHOCYTES 4.6 % (15-50); MCH 30.6 pg (26.0-34.0); MCHC 34.3 g/dL (31.0-37.0); MCV 89.1 fL (80.0-100.0); MEAN PLATELET VOLUME 10.7 fL (7.4-10.4); MONOCYTES 1.8 % (2-11); NEUTROPHILS 93.4 % (40-80); PLATELET COUNT 285 10x3/uL (130-400); RBC 4.58 10x6/uL (4.20-6.10); RDW 13.5 % (11.5-14.5)
[2019-02-07 07:38] LABS: WBC 12.1 10x3/uL (4.8-10.8)
--- NOTE | 2019-02-07 08:34 | NUR ---
AM MEDS GIVEN AT THIS TIME. PT A/O X4, RESP EVEN AND NONLABORED ON RA. LT AC IV INFUSING NS AT 75CC/HR. PT DENIES ANY NEEDS AT THIS TIME. CALL LIGHT IN REACH, NAD NOTED, WILL CONTINUE TO MONITOR.
--- NOTE | 2019-02-07 10:33 | NUR ---
SHOWER AND COMPLETE LINEN CHANGE AT THIS TIME.
[2019-02-07 13:18] VITALS: BP 123/42
--- NOTE | 2019-02-07 16:06 | NUR ---
BLOOD SUGAR OF 171, PT REFUSED TO GET 2UNTIS OF INSULIN. PT DENIES ANY NEEDS AT THIS TIME. FAMILY AT BEDSIDE, NAD NOTED.
[2019-02-07 20:00] VITALS: BP 116/49
--- NOTE | 2019-02-07 21:17 | NUR ---
HS MEDS GIVEN WITH FRESH ICE WATER. BS 155, NO COVERAGE GIVEN PER PT REQUEST. PT DENIES PAIN OR NEEDS, BED LOW, CL IN REACH. AT BED SIDE.
--- NOTE | 2019-02-07 22:56 | NUR ---
RESTING WITH EYES CLOSED, RESPERATIONS EVEN, NO S/S DISTRESS NOTED.
[2019-02-08] VITALS: BP 100/55
--- NOTE | 2019-02-08 02:32 | NUR ---
I have reviewed this patient and I concur with the Shift Assessment completed by the Licensed Practical Nurse today this shift.
[2019-02-08 04:00] VITALS: BP 118/57
[2019-02-08 05:57] LABS: ANION GAP 15.6 mmol/L (8-16); CALCIUM 8.7 mg/dL (8.5-10.1); CARBON DIOXIDE 26.9 mmol/L (21.0-32.0); CREATININE - SERUM 1.1 mg/dL (0.6-1.3)
[2019-02-08 06:12] LABS: BASOPHILS 0 % (0-2); EOSINOPHILS 0 % (0-7); HEMATOCRIT 40.4 % (42.0-54.0); HEMOGLOBIN 13.7 g/dL (13.5-17.5); IMMATURE GRANULOCYTES 0.6 % (0-5); LYMPHOCYTES 4.9 % (15-50); MCH 30.4 pg (26.0-34.0); MCHC 33.9 g/dL (31.0-37.0); MCV 89.8 fL (80.0-100.0); MEAN PLATELET VOLUME 10.3 fL (7.4-10.4); MONOCYTES 2.4 % (2-11); NEUTROPHILS 92.1 % (40-80); PLATELET COUNT 282 10x3/uL (130-400); RDW 13.7 % (11.5-14.5); WBC 13.1 10x3/uL (4.8-10.8)
[2019-02-08 06:16] LABS: POTASSIUM - SERUM 4.5 mmol/L (3.5-5.1)
[2019-02-08 08:40] VITALS: BP 137/71
--- NOTE | 2019-02-08 09:31 | NUR ---
AM MEDS GIVEN AT THIS TIME. PT A/O X4, RESP EVEN AND NOLABORED ON RA. LT AC INSUSING NS AT 75CC/HR. PT DENIES ANY NEEDS AT THIS TIME. CALL LIGHT IN REACH, AT BEDSIDE, NAD NOTED,W ILL CONTINUE TO MONITOR.
--- NOTE | 2019-02-08 11:20 | NUR ---
BLOOD SUGAR OF 155, PT REFUSED 2 UNITS OF INSULIN PER S/S. PT IN BED TALKING WITH COMPANY, DENIES ANY NEEDS AT THIS TIME. CALL LIGHT IN REACH, NAD NOTED. WILL CONTINUE TO MONITOR.
--- NOTE | 2019-02-08 13:41 | NUR ---
PT IN BED, WATCHING TV, DENIES ANY NEEDS AT THIS TIME. CALL LIGHT IN REACH, SPOUSE AT BEDSIDE, NAD NOTED, WILL CONTINUE TO MONITOR.
[2019-02-08 16:11] VITALS: BP 117/61
--- NOTE | 2019-02-08 16:13 | NUR ---
BLOOD SUGAR OF 130, NO COVERAGE PER S/S. PT DENIES ANY NEEDS AT THIS TIME. CALL LIGHT IN REACH, AT BEDSIDE, NAD NOTED, WILL CONTINUE TO MONITOR.
--- NOTE | 2019-02-08 19:07 | NUR ---
EVENING ROUNDS COMPLETE. PT LAYING IN BED, AAOX4. FAMILY AT BEDSIDE. NO SIGNS OF DISTRESS. PT DENIES ANY PAIN OR NEEDS AT THIS TIME. CL IN REACH, BED IN LOWEST POSITION.
[2019-02-08 20:00] VITALS: BP 127/56
[2019-02-09] VITALS: BP 117/52
[2019-02-09 04:00] VITALS: BP 112/49
[2019-02-09 06:17] LABS: BASOPHILS 0 % (0-2); EOSINOPHILS 0 % (0-7); HEMATOCRIT 39.5 % (42.0-54.0); HEMOGLOBIN 13.3 g/dL (13.5-17.5); IMMATURE GRANULOCYTES 0.5 % (0-5); LYMPHOCYTES 5.7 % (15-50); MCH 29.9 pg (26.0-34.0); MCHC 33.7 g/dL (31.0-37.0); MCV 88.8 fL (80.0-100.0); MEAN PLATELET VOLUME 10.1 fL (7.4-10.4); MONOCYTES 2.7 % (2-11); NEUTROPHILS 91.1 % (40-80); PLATELET COUNT 262 10x3/uL (130-400); RBC 4.45 10x6/uL (4.20-6.10); RDW 13.4 % (11.5-14.5)
[2019-02-09 06:25] LABS: WBC 9.7 10x3/uL (4.8-10.8)
[2019-02-09 06:30] LABS: ANION GAP 13.3 mmol/L (8-16); CALCIUM 8.5 mg/dL (8.5-10.1); CARBON DIOXIDE 26.7 mmol/L (21.0-32.0); CREATININE - SERUM 1.2 mg/dL (0.6-1.3); MAGNESIUM - SERUM 2.1 mg/dL (1.8-2.4)
--- NOTE | 2019-02-09 07:46 | NUR ---
PT SITTING UP IN BED. RR EVEN AND UNLABORED ON ROOM AIR. DENIES NEEDS OR PAIN AT THIS TIME. AXO. IV NOTED TO LEFT AC INFUSING NS @ 75. BED IN LOWEST POSITION. CALLL LIGHT WITHIN REACH. WILL CONTINUE TO MONITOR.
[2019-02-09 08:21] VITALS: BP 137/79
[2019-02-09 12:48] VITALS: BP 127/63
[2019-02-09] MEDS ORDERED: PREDNISONE10 MG PO (14:39)
[2019-02-09] MEDS ORDERED: LEVOFLOXACIN500 MG PO (14:42)
--- NOTE | 2019-02-09 15:32 | NUR ---
D/C INSTRUCTIONS REVIEWED WITH PT AND SPOUSE. BOTH VERBALIZED UNDERSTANDING. IV D/C WITH CATHETER TIP INTACT. DENIES FURTHER NEEDS AT THIS TIME. PT REFUSED WHEELCHAIR OUT. LEFT WITH ALL BELONGINGS BY AMBULATING.
--- NOTE | 2019-02-09 16:50 | MORECARE ---
CASE MANAGEMENT DISCHARGE SUMMARY PATIENT: KAN SERVIN UNIT: [id number] ADM DATE: 02/06/19 AGE: 53 : 67 SEX: M ROOM/BED: D.2136 AUTHOR: DAXA MARTINEZ PHYSICIAN: REFERRING PHYSICIAN: ELIZABETH FLORES MD DATE OF SERVICE: 02/09/19 Discharge Plan Patient Name: KAN SERVIN Facility: [facility]:[place] : 1965 Planned Disposition: Home Anticipated Discharge Date: Discharge Date: Expected LOS: Initial Reviewer: [email or web address] Initial Review Date: 02/06/2019 Generated: 02/09/19 5:50 pm Patient Name: KAN SERVIN Page [phone] at 1650 All edits/amendments must be made on the electronic document DICTATION DATE: 02/09/191649 SALES SECRETARY: PARUL 02/09/191649 RPT#: [id number] DC DATE: STATUS: ADM IN [facility] [address] [place] [address] END OF REPORT
--- NOTE | 2019-02-09 16:59 | MORECARE ---
CASE MANAGEMENT DISCHARGE SUMMARY PATIENT: KAN SERVIN UNIT: [id number] ADM DATE: 02/06/19 AGE: 53 : 67 SEX: M ROOM/BED: D.2136 AUTHOR: DAXA MARTINEZ PHYSICIAN: REFERRING PHYSICIAN: ELIZABETH FLORES MD DATE OF SERVICE: 02/09/19 Discharge Plan Patient Name: KAN SERVIN [facility] [facility] 1965 Planned Disposition: Home Anticipated Discharge Date: Discharge Date: 02/09/2019 Expected LOS: Initial Reviewer: [email or web address] Initial Review Date: 02/06/2019 Generated: 02/09/19 5:58 pm DCPIA - Discharge Planning Initial Assessment Updated by [email or web address]: Whit Spivey on 02/09/19 4:57 pm * Is the patient Alert and Oriented? Yes * How many steps to enter\exit or inside your home? * [facility] * [facility] * Preadmission Environment Home with Family * ADLs Independent * Equipment Nebulizer * List name and contact numbers for known caregivers / representatives who currently or will assist patient after discharge: NIC SERVIN - SPOUSE - [phone] * Verbal permission to speak to the caregivers and representatives has been obtained from the patient. Yes * Community resources currently utilized None * Additional services required to return to the preadmission environment? No * Can the patient safely return to the preadmission environment? Yes * Has this patient been hospitalized within the prior 30 days at any hospital? No Last DP export: 02/09/19 3:50 pm Patient Name: KAN SERVIN Page [phone] at 1659 All edits/amendments must be made on the electronic document DICTATION DATE: 02/09/191657 CHEMICAL EDUCATOR: PARUL 02/09/191657 RPT#: [id number] DC DATE:02/09/19 STATUS: DIS IN [facility] [address] [place] [address] END OF REPORT
--- NOTE | 2019-02-09 17:08 | MORECARE ---
CASE MANAGEMENT DISCHARGE SUMMARY PATIENT: KAN SERVIN UNIT: [id number] ADM DATE: 02/06/19 AGE: 53 : 67 SEX: M ROOM/BED: D.9316 AUTHOR: MICHELLE,DOC PHYSICIAN: REFERRING PHYSICIAN: ELIZABETH FLORES MD DATE OF SERVICE: 02/09/19 Discharge Plan Patient Name: KAN SERVIN Facility: [facility]:[place] : 1965 Planned Disposition: Home Anticipated Discharge Date: Discharge Date: 02/09/2019 Expected LOS: Initial Reviewer: [email or web address] Initial Review Date: 02/06/2019 Generated: 02/09/19 6:07 pm Comments DCP- Discharge Planning Updated by [email or web address]: Whit Spivey on 02/09/19 4:[address] LATE ENTRY 02/06/19 Patient Name: KAN SERVIN Admission Status: ER Accout number: [id number] Admission Date: 02-06-2019 : 1965 Admission Diagnosis: Attending: ELIZABETH FLORES Current LOS: 3 Anticipated DC Date: Planned Disposition: Home Primary Insurance: [employer] OUT OF STATE Discharge Planning Comments: CM met with patient at bedside after explaining CM role and obtaining verbal consent. Patient lives at home with his Meghan where he is independent with his care and plans to return there upon discharge. Patient feels this would be a safe discharge. CM discussed availability / needs of home health and medical equipment. Patient has a nebulizer. Patient denies any discharge needs at this time. Patient states he will have his family drive him home upon discharge. CM will continue to follow and assist as needed with discharge planning / needs. Back Feeder Plywood Layup Line: Whit Spivey DCPIA - Discharge Planning Initial Assessment Updated by [email or web address]: Whit Spivey on 02/09/19 4:57 pm * Is the patient Alert and Oriented? Yes * How many steps to enter\exit or inside your home? * [facility] * [facility] * Preadmission Environment Home with Family * ADLs Independent * Equipment Nebulizer * List name and contact numbers for known caregivers / representatives who currently or will assist patient after discharge: MEGHAN SERVIN - SPOUSE - [phone] * Verbal permission to speak to the caregivers and representatives has been obtained from the patient. Yes * Community resources currently utilized None * Additional services required to return to the preadmission environment? No * Can the patient safely return to the preadmission environment? Yes * Has this patient been hospitalized within the prior 30 days at any hospital? No Last DP export: 02/09/19 3:59 pm Patient Name: KAN SERVIN Page [phone] at 1708 All edits/amendments must be made on the electronic document DICTATION DATE: 02/09/191706 SPECIAL DELIVERY CLERK: PARUL 02/09/191706 RPT#: [id number] DC DATE:02/09/19 STATUS: DIS IN [facility] [address] [place] [address] END OF REPORT
== END 2019-02-09 16:55 | disposition home or self-care (01) | DRG 202 ==
LOC: D.ER 21:38 → D.M3 02-06 01:57 → D.M2 02-07 18:15
PROVIDERS: Emergency Medicine; Family Medicine; ADMIT Internal Medicine Nephrology; ATTEND Internal Medicine Nephrology
DX: J45.901 Unspecified asthma with (acute) exacerbation (principal); N17.9 Acute kidney failure, unspecified; M54.81 Occipital neuralgia; I10 Essential (primary) hypertension; R00.0 Tachycardia, unspecified; E11.9 Type 2 diabetes mellitus without complications